=== PATIENT | male | born 1950 | race Asian ===

== ENCOUNTER 2016-07-22 10:32 | Emergency (ER) | payer OTHER ==
[~2016-07-22] VITALS: Ht 170.2 cm; Wt 59.9 kg
[~2016-07-22 10:32] MED LIST: CARBAMAZEPINE300 MG PO; CARBAMAZEPINE400 MG PO; CLARITIN10 MG PO; COLACE100 MG PO; CORDARONE200 MG PO; COREG3.125 MG PO; COUMADIN2 MG PO; COUMADIN2.5 MG PO; COUMADIN3 MG PO; FEOSOL65 MG PO; FERROUS SULFAT325 MG PO; FUROSEMIDE20 M1 PO; GABAPENTIN100 M1 PO; KEPPRA1000 MG PO; LACTULOSE10 GM/152 PO; LASIX40 M1 PO; LASIX40 MG PO; LEVAQUIN500 MG PO; LIDOCAINE TP; MAPAP500 M4 PO; MULTIVITAMIN1 SGL PO; NEOMYCIN SULFA500 M1 PO; NICORELIEF PO; NIZORAL2% TP; NORCO 10/325 MG1 TAB PO; PENTOXIFYLLINE400 M1 PO; PLAVIX75 MG PO; PROTONIX40 MG PO; RANITIDINE HCL150 M2 PO; RISPERDAL1 MG PO; SENNA8.6 M1 PO; SIMVASTATIN40 M1 PO; TEGRETOL-XR200 MG PO; TEGRETOL200 M1 PO; TOPROL XL50 M1 PO; TRENTAL400 M1 PO; ULORIC40 MG PO; ULORIC80 MG PO; WARFARIN SODIUM2 M1 PO; ZYLOPRIM100 MG PO
--- NOTE | 2016-07-22 10:32 | NUR ---
1030-PT BIBA TO BED 4 AT THIS TIME
--- NOTE | 2016-07-22 10:35 | NUR ---
66/M RESHMA FROM [facility] C/O ABNORMAL POTASSIUM LEVEL X TODAY. DENIES N/V/D; SKIN IS PINK/WARM/DRY, SMALL SKIN TEAR NOTED TO R WRIST, NO ACTIVE BLEEDING AT THIS TIME; AAOX4; LUNGS CLEAR BL; HR EVEN AND REGULAR; PT DENIES ANY FEVER, CP, SOB, OR COUGH AT THIS TIME; PATIENT STATES PAIN OF 0/10 AT THIS TIME; VSS; PATIENT POSITIONED FOR COMFORT; HOB ELEVATED; BEDRAILS UP X2; BED DOWN. ER MD MADE AWARE OF PT STATUS.
[2016-07-22] MEDS ORDERED: TEGRETOL-XR100 MG PO (10:51)
--- NOTE | 2016-07-22 10:52 | NUR ---
LAB AT BEDSIDE
[2016-07-22 11:00] VITALS: BP 130/65
[2016-07-22] MEDS ORDERED: LASIX20 MG PO (11:00)
--- NOTE | 2016-07-22 11:02 | NUR ---
X RAY AT BEDSIDE
[2016-07-22] MEDS ORDERED: LACTULOSE10 GM/152 PO (11:07)
[2016-07-22] MEDS ORDERED: KEPPRA750 MG PO (11:12)
--- NOTE | 2016-07-22 11:41 | NUR ---
DR MALAVE EVALUATING PT AT BEDSIDE
[2016-07-22 12:12] VITALS: BP 126/66
--- NOTE | 2016-07-22 12:12 | NUR ---
Patient discharged with v/s stable. Written and verbal after care instructions given and explained. Patient verbalized understanding. Ambulatory with STEADY GAIT, ACCOMPANIED by caregiver. All questions addressed prior to discharge. Advised to follow up with PMD.
[2017-01-05] MEDS ORDERED: SOMA350 MG PO (21:42)
[2017-01-05] MEDS ORDERED: MEGACE40 MG/ML PO (21:42)
[2017-01-05] MEDS ORDERED: HYDROCORTISONE2.51 TP (21:42)
[2017-01-05] MEDS ORDERED: VENTOLIN H0.09 MG/Ac IH (21:42)
[2017-01-05] MEDS ORDERED: CLARITIN10 M1 PO (21:42)
[2017-01-05] MEDS ORDERED: TYLENOL #3 300/1 TAB PO (21:42)
[2017-01-05] MEDS ORDERED: APAP PO (21:42)
[2017-01-05] MEDS ORDERED: ENALAPRIL MALE2.5 MG PO (21:42)
[2017-01-05] MEDS ORDERED: DELTASONE20 MG PO (21:42)
[2017-01-05] MEDS ORDERED: HYDROCODON PO (21:42)
[2017-01-05] MEDS ORDERED: KENALOG 0.025%15 GM TP (22:08)
[2017-01-05] MEDS ORDERED: ULORIC40 MG PO (22:22)
[2017-01-05] MEDS ORDERED: ZYLOPRIM100 MG PO (22:22)
[2017-01-05] MEDS ORDERED: SENNA8.6 M1 PO (22:22)
[2017-01-05] MEDS ORDERED: LIDODERM 5%1 EA TP (22:22)
[2017-01-05] MEDS ORDERED: MAPAP500 M3 PO (22:22)
[2017-01-07] MEDS ORDERED: ASPIRIN81 M1 PO (10:24)
== END 2016-07-22 12:12 | disposition home or self-care (01) ==
LOC: MED 10:32
DX: E87.5 Hyperkalemia (principal); I11.0 Hypertensive heart disease with heart failure; I50.9 Heart failure, unspecified; J45.909 Unspecified asthma, uncomplicated; F17.200 Nicotine dependence, unspecified, uncomplicated; Z86.73 Personal history of transient ischemic attack (TIA), and cerebral infarction without residual deficits; Z90.89 Acquired absence of other organs; Z79.899 Other long term (current) drug therapy; Z88.0 Allergy status to penicillin; Z88.8 Allergy status to other drugs, medicaments and biological substances
CPT/HCPCS: 36415; 71010; 80053; 85025; 93005; 99285; Q0092

== ENCOUNTER 2016-08-18 09:07 | Emergency (ER) | payer OTHER ==
[~2016-08-18] VITALS: Ht 170.2 cm; Wt 63.5 kg
[~2016-08-18 09:07] MED LIST changes: +KEPPRA750 MG PO; +LASIX20 MG PO; +TEGRETOL-XR100 MG PO
[2016-08-18 09:30] VITALS: BP 141/56
--- NOTE | 2016-08-18 09:40 | NUR ---
66/M BIB SELF C/O RIGHT SIDE OF FACE BLEEDING X YESTERDAY S/P SCRATCHED FACE CURRENTLY HAS A SATURATED BAND-AID; HX CABG, HTN. PT DENIES N/V/D; SKIN IS PINK/WARM/DRY; AAOX4 WITH EVEN AND STEADY GAIT; LUNGS CLEAR BL; HR EVEN AND REGULAR; PT DENIES ANY FEVER, CP, SOB, OR COUGH AT THIS TIME; PATIENT STATES PAIN OF 0/10 AT THIS TIME; VSS; PATIENT POSITIONED FOR COMFORT; HOB ELEVATED; BEDRAILS UP X2; BED DOWN. ER MD MADE AWARE OF PT STATUS.
--- NOTE | 2016-08-18 09:40 | NUR ---
LAB AT BEDSIDE
--- NOTE | 2016-08-18 11:00 | NUR ---
Patient discharged with stable CODITION AT THIS TIME. Written and verbal after care instructions given and explained. Patient verbalized understanding. Ambulatory with steady gait. All questions addressed prior to discharge. Advised to follow up with PMD.
[2016-08-18 11:01] VITALS: BP 132/64
[2017-01-05] MEDS ORDERED: HYDROCODON PO (21:42)
[2017-01-05] MEDS ORDERED: APAP PO (21:42)
[2017-01-05] MEDS ORDERED: VENTOLIN H0.09 MG/Ac IH (21:42)
[2017-01-05] MEDS ORDERED: HYDROCORTISONE2.51 TP (21:42)
[2017-01-05] MEDS ORDERED: ENALAPRIL MALE2.5 MG PO (21:42)
[2017-01-05] MEDS ORDERED: MEGACE40 MG/ML PO (21:42)
[2017-01-05] MEDS ORDERED: SOMA350 MG PO (21:42)
[2017-01-05] MEDS ORDERED: DELTASONE20 MG PO (21:42)
[2017-01-05] MEDS ORDERED: CLARITIN10 M1 PO (21:42)
[2017-01-05] MEDS ORDERED: TYLENOL #3 300/1 TAB PO (21:42)
[2017-01-05] MEDS ORDERED: KENALOG 0.025%15 GM TP (22:08)
[2017-01-05] MEDS ORDERED: SENNA8.6 M1 PO (22:22)
[2017-01-05] MEDS ORDERED: LIDODERM 5%1 EA TP (22:22)
[2017-01-05] MEDS ORDERED: MAPAP500 M3 PO (22:22)
[2017-01-05] MEDS ORDERED: ZYLOPRIM100 MG PO (22:22)
[2017-01-05] MEDS ORDERED: ULORIC40 MG PO (22:22)
[2017-01-07] MEDS ORDERED: ASPIRIN81 M1 PO (10:24)
== END 2016-08-18 11:00 | disposition home or self-care (01) ==
LOC: MED 09:10
DX: S01.411A Laceration without foreign body of right cheek and temporomandibular area, initial encounter (principal); D68.8 Other specified coagulation defects; I11.0 Hypertensive heart disease with heart failure; I50.9 Heart failure, unspecified; J45.909 Unspecified asthma, uncomplicated; Z79.899 Other long term (current) drug therapy; Z88.8 Allergy status to other drugs, medicaments and biological substances; Z88.0 Allergy status to penicillin; Z88.3 Allergy status to other anti-infective agents; Z79.01 Long term (current) use of anticoagulants; Z86.73 Personal history of transient ischemic attack (TIA), and cerebral infarction without residual deficits; Z95.1 Presence of aortocoronary bypass graft; F17.200 Nicotine dependence, unspecified, uncomplicated; X58.XXXA Exposure to other specified factors, initial encounter; Y93.89 Activity, other specified; Y92.89 Other specified places as the place of occurrence of the external cause; Y99.8 Other external cause status

== ENCOUNTER 2017-01-02 15:43 | Emergency (ER) | payer OTHER ==
[~2017-01-02] VITALS: Ht 170.2 cm; Wt 63.5 kg
[~2017-01-02 15:43] MED LIST changes: +AMIO200T PO; +CARB100T PO; -CARBAMAZEPINE300 MG PO; -CARBAMAZEPINE400 MG PO; +CARV3.12 PO; -CLARITIN10 MG PO; +CLOP75TA PO; -COLACE100 MG PO; -CORDARONE200 MG PO; -COREG3.125 MG PO; -COUMADIN2 MG PO; -COUMADIN2.5 MG PO; -COUMADIN3 MG PO; +DOCU-264 PO; +FEBU40TA PO; -FEOSOL65 MG PO; +FERR325E14 PO; -FERROUS SULFAT325 MG PO; +FURO-572 PO; -FUROSEMIDE20 M1 PO; +GABA-636 PO; -GABAPENTIN100 M1 PO; -KEPPRA1000 MG PO; -KEPPRA750 MG PO; +KETO2CRE31 TP; +LACT10SO1 PO; -LACTULOSE10 GM/152 PO; -LASIX20 MG PO; -LASIX40 M1 PO; -LASIX40 MG PO; -LEVAQUIN500 MG PO; +LEVE750T3 PO; -LIDOCAINE TP; -MAPAP500 M4 PO; +MULT1SGL58 PO; -MULTIVITAMIN1 SGL PO; +NEOM500T2 PO; -NEOMYCIN SULFA500 M1 PO; -NICORELIEF PO; -NIZORAL2% TP; -NORCO 10/325 MG1 TAB PO; +PANT40EC PO; +PENT400T3 PO; -PENTOXIFYLLINE400 M1 PO; -PLAVIX75 MG PO; -PROTONIX40 MG PO; -RANITIDINE HCL150 M2 PO; +RISP1TAB1 PO; -RISPERDAL1 MG PO; -SENNA8.6 M1 PO; +SIMV40TA5 PO; -SIMVASTATIN40 M1 PO; -TEGRETOL-XR100 MG PO; -TEGRETOL-XR200 MG PO; -TEGRETOL200 M1 PO; -TOPROL XL50 M1 PO; -TRENTAL400 M1 PO; -ULORIC40 MG PO; -ULORIC80 MG PO; +WARF2TAB79 PO; +WARF3TAB PO; -WARFARIN SODIUM2 M1 PO; -ZYLOPRIM100 MG PO
--- NOTE | 2017-01-02 15:43 | NUR ---
Patient BIBA BLS, transferred to bed 4. RN evaluating patient at bedside.
[2017-01-02 15:49] VITALS: BP 122/60
[2017-01-02 16:21] LABS: BASOPHILS # (AUTO) 0.3 K/uL (0.00-0.22); EOSINOPHILS # (AUTO) 0.1 K/uL (0-0.4); HEMATOCRIT 33.6 % (36-52); LYMPHOCYTES # (AUTO) 0.9 K/uL (2.0-11.5); MEAN CORPUSCULAR HEMOGLOBIN 31 pg (27-31); MEAN CORPUSCULAR HGB CONC 33 g/dL (33-37); MEAN CORPUSCULAR VOLUME 96 fL (80-94); MONOCYTES # (AUTO) 0.3 K/uL (0.8-1.0); NEUTROPHILS # (AUTO) 4.5 K/uL (1.8-7.7); PLATELET COUNT (AUTO) 187 K/uL (140-450); RED BLOOD CELL COUNT(AUTO) 3.51 MIL/uL (4.20-6.10); RED CELL DISTRIBUTION WIDTH 14.3 % (11.6-13.7); WHITE BLOOD COUNT (AUTO) 6.1 K/uL (4.8-10.8)
[2017-01-02 16:45] LABS: ALBUMIN 3.6 g/dL (3.4-5.0); ANION GAP 16.7 (8-16); CARBON DIOXIDE 22.2 mmol/L (21-32); CREATININE 2.6 mg/dL (0.7-1.3); POTASSIUM 5.9 mmol/L (3.5-5.1); TOTAL BILIRUBIN 0.4 mg/dL (0.0-1.0); TOTAL PROTEIN, SERUM 7.2 g/dL (6.4-8.2)
[2017-01-02 16:48] LABS: INR 3.3 (0.8-1.2); PROTHROMBIN TIME 33.5 secs (10.8-13.4)
[2017-01-02] MEDS ORDERED: SODIUM POLYSTYRENE 15 GM/60 ML UDBTL PO ONE (17:25)
--- NOTE | 2017-01-02 17:40 | NUR ---
MD AT BEDSIDE SPEAKING WITH PT
--- NOTE | 2017-01-02 18:00 | NUR ---
PT TO X-RAY
--- NOTE | 2017-01-02 19:04 | NUR ---
PT HAS BEEN AMBULATORY TO AND FROM [facility] A FEW TIMES---PT CONTINUES TO WAIT FOR DISPO
[2017-01-02 19:14] VITALS: BP 137/63
== END 2017-01-02 19:14 | disposition home or self-care (01) ==
LOC: MED 15:43
DX: E87.5 Hyperkalemia (principal); M25.551 Pain in right hip; M25.552 Pain in left hip; R79.1 Abnormal coagulation profile; J45.909 Unspecified asthma, uncomplicated; I50.9 Heart failure, unspecified; Z86.73 Personal history of transient ischemic attack (TIA), and cerebral infarction without residual deficits; I10 Essential (primary) hypertension; Z88.0 Allergy status to penicillin; Z88.6 Allergy status to analgesic agent
CPT/HCPCS: 36415; 71010; 72192; 80053; 83880; 84484; 85025; 85610; 85730; 93005; 99285; Q0092

== ENCOUNTER 2017-01-05 21:23 | Inpatient (IN) | payer OTHER ==
[~2017-01-05] VITALS: Ht 170.2 cm; Wt 63.0 kg
[2017-01-05 21:24] VITALS: BP 97/47
[2017-01-05] MEDS ORDERED: PRED20TA5 PO (21:42)
[2017-01-05] MEDS ORDERED: LORA10TA19 PO (21:42)
[2017-01-05] MEDS ORDERED: [UNRECOGNIZED DRUG - CODE] PO (21:42)
[2017-01-05] MEDS ORDERED: CARI350T PO (21:42)
[2017-01-05] MEDS ORDERED: [UNRECOGNIZED DRUG - CODE] TP (21:42)
[2017-01-05] MEDS ORDERED: MEGE40SU PO (21:42)
[2017-01-05] MEDS ORDERED: TYL3 PO (21:42)
[2017-01-05] MEDS ORDERED: ALBU0.0912 IH (21:42)
[2017-01-05] MEDS ORDERED: HYDR-4452 PO (21:42)
[2017-01-05] MEDS ORDERED: NACL 0.9% 2,000 ML IV SCH (21:52)
[2017-01-05] MEDS ORDERED: KEN.025C TP (22:08)
[2017-01-05 22:16] LABS: BASOPHILS % (AUTO) 0.7 % (0.0-2.0); EOSINOPHILS # (AUTO) 0.2 K/uL (0-0.4); EOSINOPHILS % (AUTO) 2.6 % (0.0-4.0); HEMATOCRIT 31.1 % (36-52); HEMOGLOBIN 10.3 g/dL (12.0-18.0); LYMPHOCYTES % (AUTO) 15.1 % (20.5-51.1); MEAN CORPUSCULAR HEMOGLOBIN 32 pg (27-31); MEAN CORPUSCULAR HGB CONC 33 g/dL (33-37); MEAN CORPUSCULAR VOLUME 96 fL (80-94); MONOCYTES # (AUTO) 0.3 K/uL (0.8-1.0); MONOCYTES % (AUTO) 4.7 % (1.7-9.3); NEUTROPHILS # (AUTO) 4.8 K/uL (1.8-7.7); NEUTROPHILS % (AUTO) 76.9 % (42.2-75.2); PLATELET COUNT (AUTO) 160 K/uL (140-450); RED BLOOD CELL COUNT(AUTO) 3.23 MIL/uL (4.20-6.10); RED CELL DISTRIBUTION WIDTH 14.3 % (11.6-13.7); WHITE BLOOD COUNT (AUTO) 6.3 K/uL (4.8-10.8)
[2017-01-05] MEDS ORDERED: FEBU40TA PO (22:22)
[2017-01-05] MEDS ORDERED: LID5T TP (22:22)
[2017-01-05] MEDS ORDERED: ALLO100T21 PO (22:22)
[2017-01-05] MEDS ORDERED: ACET-1087 PO (22:22)
[2017-01-05] MEDS ORDERED: SENN-72 PO (22:22)
[2017-01-05 22:26] LABS: BLOOD GAS BASE EXCESS -6.4 mmol/L (-2.0-2.0); BLOOD GAS PCO2 37.9 mmHg (20-50); BLOOD GAS PH 7.319 (7.35-7.45)
[2017-01-05 22:27] LABS: BLOOD GAS O2 SAT% 93.2 % (92.0-98.5)
[2017-01-05 22:42] LABS: ALBUMIN 3.6 g/dL (3.4-5.0); ANION GAP 14.3 (8-16); CARBON DIOXIDE 23.1 mmol/L (21-32); INR 1.7 (0.8-1.2); PROTHROMBIN TIME 17.6 secs (10.8-13.4); TOTAL BILIRUBIN 0.3 mg/dL (0.0-1.0); TOTAL PROTEIN, SERUM 7.7 g/dL (6.4-8.2)
[2017-01-05 22:45] LABS: POTASSIUM 5.4 mmol/L (3.5-5.1)
[2017-01-05 22:55] LABS: LACTIC ACID 0.8 mmol/L (0.4-2.0)
[2017-01-05 22:59] LABS: PARTIAL THROMBOPLASTIN TIME 59.7 secs (22-35.6)
[2017-01-05] MEDS ORDERED: DEXTROSE 50% 50 ML SYR IVP ONE (23:15)
[2017-01-05] MEDS ORDERED: INSULIN HUMAN REGULAR 100 UNITS/ML 10 ML VIAL IVP ONE (23:15)
[2017-01-05] MEDS ORDERED: NACL 0.9% 1,000 ML IV SCH (23:34)
[2017-01-05] MEDS ORDERED: MORPHINE SULFATE 2 MG/ML SYR IVP PRN (23:35)
[2017-01-05] MEDS ORDERED: ACETAMINOPHEN 325 MG TAB PO PRN (23:35)
[2017-01-05] MEDS ORDERED: HYDROcodone/APAP 7.5/325 MG 1 TAB PO PRN (23:35)
[2017-01-05] MEDS ORDERED: ONDANSETRON 4 MG/2 ML VIAL IM/IVP PRN (23:35)
[2017-01-05] MEDS ORDERED: DOCUSATE SODIUM 100 MG GELCAP PO PRN (23:35)
[2017-01-06] VITALS (7 sets, daily range): BP systolic 103–139; BP diastolic 52–76
[2017-01-06 00:07] LABS: CHOL/HDL RATIO 2.8 (1-4.5); FREE T4 (FREE THYROXINE) 1.16 ng/dL (0.76-1.46); PHOSPHORUS 4.1 mg/dL (2.5-4.9); THYROID STIMULATING HORMONE 2.54 uIU/mL (0.34-3.74)
[2017-01-06] MEDS ORDERED: ACETAMINOPHEN EXTRA STRENGTH 500 MG TAB PO SCH (00:45)
[2017-01-06] MEDS ORDERED: LIDOCAINE OINTMENT 5% 35 GM TUBE TP PRN (00:45)
[2017-01-06] MEDS ORDERED: LACTULOSE 20 GM/30 ML UDC PO PRN (00:45)
[2017-01-06] MEDS ORDERED: LORATADINE 10 MG TAB PO PRN (00:45)
[2017-01-06] MEDS ORDERED: HYDROcodone/APAP 10/325 MG 1 TAB TAB PO SCH (00:45)
[2017-01-06] MEDS ORDERED: LACTULOSE 20 GM/30 ML UDC PO SCH (01:00)
[2017-01-06] MEDS ORDERED: SODIUM POLYSTYRENE 15 GM/60 ML UDBTL PO SCH (01:00)
[2017-01-06] MEDS: NEOMYCIN 500 MG TAB PO SCH ×3 (05:27→17:47)
[2017-01-06] MEDS: ACETAMINOPHEN/CODEINE 300/30MG 1 TAB PO SCH ×3 (06:00→17:47)
[2017-01-06 06:12] LABS: BASOPHILS # (AUTO) 0.1 K/uL (0.00-0.22); BASOPHILS % (AUTO) 0.8 % (0.0-2.0); EOSINOPHILS # (AUTO) 0.1 K/uL (0-0.4); EOSINOPHILS % (AUTO) 1.3 % (0.0-4.0); HEMATOCRIT 31.3 % (36-52); HEMOGLOBIN 10.1 g/dL (12.0-18.0); LYMPHOCYTES # (AUTO) 0.7 K/uL (2.0-11.5); LYMPHOCYTES % (AUTO) 9.8 % (20.5-51.1); MEAN CORPUSCULAR HEMOGLOBIN 31 pg (27-31); MEAN CORPUSCULAR HGB CONC 32 g/dL (33-37); MEAN CORPUSCULAR VOLUME 97 fL (80-94); MONOCYTES # (AUTO) 0.3 K/uL (0.8-1.0); NEUTROPHILS # (AUTO) 6.4 K/uL (1.8-7.7); NEUTROPHILS % (AUTO) 84.1 % (42.2-75.2); PLATELET COUNT (AUTO) 153 K/uL (140-450); RED BLOOD CELL COUNT(AUTO) 3.22 MIL/uL (4.20-6.10); RED CELL DISTRIBUTION WIDTH 14.9 % (11.6-13.7); WHITE BLOOD COUNT (AUTO) 7.6 K/uL (4.8-10.8)
[2017-01-06 06:22] LABS: CALCIUM 7.8 mg/dL (8.5-10.1); CARBON DIOXIDE 21.7 mmol/L (21-32); CREATININE 2.7 mg/dL (0.7-1.3); POTASSIUM 4.7 mmol/L (3.5-5.1)
[2017-01-06] MEDS: CARVEDILOL 3.125 MG TAB PO SCH ×2 (08:27→16:42)
[2017-01-06] MEDS: FERROUS SULFATE 325 MG TABEC PO SCH ×3 (08:27→16:42)
[2017-01-06] MEDS ORDERED: DOCUSATE SODIUM 100 MG GELCAP PO SCH ×2 (09:00)
[2017-01-06] MEDS ORDERED: FEBUXOSTAT 40 MG PO SCH ×2 (09:00)
[2017-01-06] MEDS ORDERED: PENTOXIFYLLINE 400 MG TABER PO SCH (09:00)
[2017-01-06] MEDS: CLOPIDOGREL 75 MG TAB PO SCH (09:00)
[2017-01-06] MEDS: FUROSEMIDE 20 MG TAB PO SCH ×2 (09:34→09:37)
[2017-01-06] MEDS: predniSONE 20 MG TAB PO SCH ×2 (09:34→09:37)
[2017-01-06] MEDS: ENALAPRIL 2.5 MG TAB PO SCH (09:35)
[2017-01-06] MEDS: levETIRAcetam 500 MG TAB PO SCH ×2 (09:37→21:01)
[2017-01-06] MEDS: MULTIVITAMIN 1 TAB PO SCH (09:38)
[2017-01-06] MEDS: CARISOPRODOL 350 MG TAB PO SCH ×2 (09:38→21:00)
[2017-01-06] MEDS: AMIODARONE 200 MG TAB PO SCH ×2 (09:38→21:01)
[2017-01-06] MEDS: PANTOPRAZOLE 40 MG TABEC PO SCH (09:38)
[2017-01-06] MEDS: ALLOPURINOL 100 MG TAB PO SCH (09:38)
[2017-01-06] MEDS: MEGESTROL 400 MG/10 ML UDC PO SCH (09:39)
[2017-01-06] MEDS: TRIAMCINOLONE 0.025% CRM 15 GM TUBE TP SCH ×2 (09:45→21:02)
[2017-01-06] MEDS ORDERED: NICOTINE TRANSD SYS 14 MG/24 HR PATCH TD SCH (13:53)
[2017-01-06] MEDS ORDERED: WARFARIN 2 MG TAB PO SCH (17:00)
[2017-01-06] MEDS ORDERED: SENNA 8.6 MG TAB PO PRN (21:00)
[2017-01-06] MEDS ORDERED: SIMVASTATIN 40 MG TAB PO SCH (21:00)
[2017-01-06] MEDS ORDERED: GABAPENTIN 100 MG CAP PO SCH (21:00)
[2017-01-06] MEDS ORDERED: risperiDONE 1 MG TAB PO SCH (21:00)
[2017-01-06] MEDS ORDERED: HYDROCORTISONE 2.5% CRM 30 GM TUBE TP PRN (21:00)
[2017-01-07] MEDS: NEOMYCIN 500 MG TAB PO SCH ×2 (00:06→05:50)
[2017-01-07] MEDS: ACETAMINOPHEN/CODEINE 300/30MG 1 TAB PO SCH ×2 (00:06→05:53)
[2017-01-07 00:08] VITALS: BP 133/68
[2017-01-07 05:04] VITALS: BP 110/62
[2017-01-07 06:15] LABS: BASOPHILS # (AUTO) 0.1 K/uL (0.00-0.22); BASOPHILS % (AUTO) 0.9 % (0.0-2.0); EOSINOPHILS # (AUTO) 0.1 K/uL (0-0.4); EOSINOPHILS % (AUTO) 1.7 % (0.0-4.0); HEMATOCRIT 30.3 % (36-52); LYMPHOCYTES # (AUTO) 0.7 K/uL (2.0-11.5); LYMPHOCYTES % (AUTO) 8.6 % (20.5-51.1); MEAN CORPUSCULAR HEMOGLOBIN 32 pg (27-31); MEAN CORPUSCULAR HGB CONC 33 g/dL (33-37); MEAN CORPUSCULAR VOLUME 96 fL (80-94); MONOCYTES # (AUTO) 0.4 K/uL (0.8-1.0); NEUTROPHILS # (AUTO) 6.4 K/uL (1.8-7.7); NEUTROPHILS % (AUTO) 83.8 % (42.2-75.2); PLATELET COUNT (AUTO) 154 K/uL (140-450); RED BLOOD CELL COUNT(AUTO) 3.17 MIL/uL (4.20-6.10); RED CELL DISTRIBUTION WIDTH 14.2 % (11.6-13.7); WHITE BLOOD COUNT (AUTO) 7.7 K/uL (4.8-10.8)
[2017-01-07 06:28] LABS: INR 1.8 (0.8-1.2); PROTHROMBIN TIME 17.7 secs (10.8-13.4)
[2017-01-07 06:35] LABS: ANION GAP 12.7 (8-16); CALCIUM 7.9 mg/dL (8.5-10.1); CREATININE 2.3 mg/dL (0.7-1.3); POTASSIUM 4.7 mmol/L (3.5-5.1)
[2017-01-07 06:36] LABS: T4 (THYROXINE) 10.6 ug/dL (4.5-12.0)
[2017-01-07 08:00] VITALS: BP 137/58
[2017-01-07] MEDS: TRIAMCINOLONE 0.025% CRM 15 GM TUBE TP SCH (08:13)
[2017-01-07] MEDS: MEGESTROL 400 MG/10 ML UDC PO SCH (08:18)
[2017-01-07] MEDS: CARISOPRODOL 350 MG TAB PO SCH (08:19)
[2017-01-07] MEDS: PANTOPRAZOLE 40 MG TABEC PO SCH (08:20)
[2017-01-07] MEDS: ALLOPURINOL 100 MG TAB PO SCH (08:21)
[2017-01-07] MEDS: predniSONE 20 MG TAB PO SCH (08:22)
[2017-01-07] MEDS: MULTIVITAMIN 1 TAB PO SCH (08:22)
[2017-01-07] MEDS: CARVEDILOL 3.125 MG TAB PO SCH (08:22)
[2017-01-07] MEDS: FERROUS SULFATE 325 MG TABEC PO SCH (08:22)
[2017-01-07] MEDS: AMIODARONE 200 MG TAB PO SCH (08:22)
[2017-01-07] MEDS: levETIRAcetam 500 MG TAB PO SCH (08:22)
[2017-01-07] MEDS: FUROSEMIDE 20 MG TAB PO SCH (08:23)
[2017-01-07] MEDS: CLOPIDOGREL 75 MG TAB PO SCH (08:23)
[2017-01-07] MEDS: ENALAPRIL 2.5 MG TAB PO SCH (08:23)
[2017-01-07 08:36] LABS: HEMOGLOBIN A1C 6.1 % (4.8-5.6)
[2017-01-07] MEDS ORDERED: NICOTINE TRANSD SYS 21 MG/24 HR PATCH TD SCH (09:00)
[2017-01-07] MEDS ORDERED: KETOCONAZOLE 2% 15 GM TUBE TP SCH (09:00)
[2017-01-07] MEDS ORDERED: NICOTINE TRANSD SYS 14 MG/24 HR PATCH TD SCH (09:00)
[2017-01-07] MEDS ORDERED: ATORVASTATIN 20 MG TAB PO SCH (09:00)
[2017-01-07 09:25] VITALS: BP 137/58
[2017-01-07] MEDS ORDERED: ASPI81CT89 PO (10:24)
[2017-01-07] MEDS ORDERED: WARFARIN 1 MG TAB PO SCH (17:00)
[2017-01-08] MEDS ORDERED: ASPIRIN 81 MG TAB.CHEW PO SCH (09:00)
== END 2017-01-07 10:00 | DRG 460 ==
LOC: MED 21:23 → MTU 23:38
PROVIDERS: ADMIT Family Medicine; ATTEND Family Medicine
DX: N17.0 Acute kidney failure with tubular necrosis (principal); I50.43 Acute on chronic combined systolic (congestive) and diastolic (congestive) heart failure; I95.9 Hypotension, unspecified; E11.22 Type 2 diabetes mellitus with diabetic chronic kidney disease; I13.0 Hypertensive heart and chronic kidney disease with heart failure and stage 1 through stage 4 chronic kidney disease, or unspecified chronic kidney disease; E11.51 Type 2 diabetes mellitus with diabetic peripheral angiopathy without gangrene; E87.5 Hyperkalemia; E86.0 Dehydration; E83.51 Hypocalcemia; N18.3 Chronic kidney disease, stage 3 (moderate); Z95.1 Presence of aortocoronary bypass graft; G90.9 Disorder of the autonomic nervous system, unspecified; J44.1 Chronic obstructive pulmonary disease with (acute) exacerbation; F17.210 Nicotine dependence, cigarettes, uncomplicated; G40.909 Epilepsy, unspecified, not intractable, without status epilepticus; D63.8 Anemia in other chronic diseases classified elsewhere; Z60.2 Problems related to living alone; Z53.29 Procedure and treatment not carried out because of patient's decision for other reasons; I25.5 Ischemic cardiomyopathy; I08.3 Combined rheumatic disorders of mitral, aortic and tricuspid valves; I25.2 Old myocardial infarction; Z88.6 Allergy status to analgesic agent; Z91.048 Other nonmedicinal substance allergy status; Z79.01 Long term (current) use of anticoagulants; Z88.0 Allergy status to penicillin; Z88.8 Allergy status to other drugs, medicaments and biological substances; Z79.899 Other long term (current) drug therapy; Z95.0 Presence of cardiac pacemaker; Z82.49 Family history of ischemic heart disease and other diseases of the circulatory system; Z82.3 Family history of stroke; Z71.6 Tobacco abuse counseling; I69.334 Monoplegia of upper limb following cerebral infarction affecting left non-dominant side
CPT/HCPCS: 36415; 36600; 70450; 71010; 80048; 80053; 82150; 82550; 82553; 82803; 83036; 83605; 83690; 83735; 83874; 83880; 84100; 84436; 84439; 84443; 84479; 84484; 85025; 85610; 85730; 87040; 87081; 93005; 96361; 96374; 96375; 97110; 99291; G0482; J1815; J7030; J7512

== ENCOUNTER 2017-02-12 19:45 | Emergency (ER) | payer OTHER ==
[~2017-02-12] VITALS: Ht 162.6 cm; Wt 66.2 kg
[~2017-02-12 19:45] MED LIST changes: +ALBU0.0912 IH; +ALLO100T21 PO; +ASPI81CT89 PO; +CARI350T PO; -GABA-636 PO; +HYDR-4452 PO; +KEN.025C TP; -LACT10SO1 PO; +LID5T TP; +LORA10TA19 PO; +MEGE40SU PO; +SENN-72 PO; +[UNRECOGNIZED DRUG - CODE] PO; +[UNRECOGNIZED DRUG - CODE] TP
[2017-02-12 19:49] VITALS: BP 105/67
--- NOTE | 2017-02-12 19:51 | NUR ---
PT RESHMA BLS. TAKEN TO BED 3
[2017-02-12] MEDS ORDERED: FEBU40TA PO (20:12)
--- NOTE | 2017-02-12 20:37 | NUR ---
CLIENT ALERT & ORIENTED X4,DENIES PAIN AT THIS TIME,STATED THAT HE HAS SOME DIZZINESS.PLACED ON SPO2/INTERMEDIATE PROJECT MANAGER,97% ROOM AIR VITAL SIGNS STABLE,EKG DONE.
[2017-02-12 21:00] LABS: BASOPHILS # (AUTO) 0.4 K/uL (0.00-0.22); BASOPHILS % (AUTO) 5.1 % (0.0-2.0); EOSINOPHILS # (AUTO) 0.2 K/uL (0-0.4); EOSINOPHILS % (AUTO) 2.9 % (0.0-4.0); HEMOGLOBIN 10.5 g/dL (12.0-18.0); LYMPHOCYTES % (AUTO) 12.5 % (20.5-51.1); MEAN CORPUSCULAR HEMOGLOBIN 32 pg (27-31); MEAN CORPUSCULAR HGB CONC 33 g/dL (33-37); MEAN CORPUSCULAR VOLUME 99 fL (80-94); MONOCYTES # (AUTO) 0.4 K/uL (0.8-1.0); MONOCYTES % (AUTO) 4.3 % (1.7-9.3); NEUTROPHILS # (AUTO) 6.2 K/uL (1.8-7.7); NEUTROPHILS % (AUTO) 75.2 % (42.2-75.2); PLATELET COUNT (AUTO) 197 K/uL (140-450); RED BLOOD CELL COUNT(AUTO) 3.24 MIL/uL (4.20-6.10); RED CELL DISTRIBUTION WIDTH 13.6 % (11.6-13.7); WHITE BLOOD COUNT (AUTO) 8.2 K/uL (4.8-10.8)
[2017-02-12 21:05] LABS: PROTHROMBIN TIME 22.9 secs (10.8-13.4)
[2017-02-12 21:08] LABS: ANION GAP 18.6 (8-16); CARBON DIOXIDE 19.8 mmol/L (21-32); CREATININE 2.5 mg/dL (0.7-1.3); POTASSIUM 5.4 mmol/L (3.5-5.1); TOTAL BILIRUBIN 0.3 mg/dL (0.0-1.0)
--- NOTE | 2017-02-12 21:36 | NUR ---
Dr. Randall evaluating patient at bedside.
[2017-02-12] MEDS ORDERED: SODIUM POLYSTYRENE 15 GM/60 ML UDBTL PO ONE (21:45)
--- NOTE | 2017-02-12 21:49 | NUR ---
IV removed, catheter intact and site benign. Applied folded 4x4 gauze and tape to stop bleeding.
[2017-02-12 22:43] VITALS: BP 123/58
--- NOTE | 2017-02-12 22:47 | NUR ---
Patient discharged with v/s stable. Written and verbal after care instructions given and explained. Patient verbalized understanding. Wheel Chair Assisted with to ASSISTED LIVING. All questions addressed prior to discharge. Advised to follow up with PMD.Brother to patient to facility next door.
== END 2017-02-12 22:47 | disposition home or self-care (01) ==
LOC: MED 19:45
DX: R55 Syncope and collapse (principal); E87.5 Hyperkalemia; I10 Essential (primary) hypertension; F17.210 Nicotine dependence, cigarettes, uncomplicated; Z88.0 Allergy status to penicillin; Z88.8 Allergy status to other drugs, medicaments and biological substances; Z95.1 Presence of aortocoronary bypass graft
CPT/HCPCS: 36415; 71010; 80053; 83880; 84484; 85025; 85610; 85730; 93005; 99285; Q0092

== ENCOUNTER 2017-02-17 13:49 | Emergency (ER) | payer OTHER ==
[~2017-02-17] VITALS: Ht 172.7 cm; Wt 63.5 kg
[2017-02-17 13:58] VITALS: BP 123/57
--- NOTE | 2017-02-17 14:00 | NUR ---
PATIENT BIB EMS FROM [facility] WITH C/O GENERALYZED WEAKNESS; HX; HTN, CARDIAC DZ; SEIZURES RX; --- DENIES N/V/D; SKIN IS PINK/WARM/DRY; AAOX4 WITH EVEN AND STEADY GAIT; LUNGS CLEAR BL; HR EVEN AND REGULAR; PT DENIES ANY FEVER, CP, SOB, OR COUGH AT THIS TIME; PATIENT STATES PAIN OF 0/10 AT THIS TIME; VSS; PATIENT POSITIONED FOR COMFORT; HOB ELEVATED; BEDRAILS UP X2; BED DOWN. ER MD MADE AWARE OF PT STATUS.
[2017-02-17 15:11] LABS: BASOPHILS # (AUTO) 0.1 K/uL (0.00-0.22); BASOPHILS % (AUTO) 1.9 % (0.0-2.0); EOSINOPHILS # (AUTO) 0.3 K/uL (0-0.4); EOSINOPHILS % (AUTO) 3.5 % (0.0-4.0); HEMATOCRIT 33.9 % (36-52); HEMOGLOBIN 11.1 g/dL (12.0-18.0); LYMPHOCYTES # (AUTO) 0.6 K/uL (2.0-11.5); LYMPHOCYTES % (AUTO) 7.8 % (20.5-51.1); MEAN CORPUSCULAR HEMOGLOBIN 32 pg (27-31); MEAN CORPUSCULAR HGB CONC 33 g/dL (33-37); MEAN CORPUSCULAR VOLUME 98 fL (80-94); MONOCYTES # (AUTO) 0.3 K/uL (0.8-1.0); NEUTROPHILS # (AUTO) 6.1 K/uL (1.8-7.7); NEUTROPHILS % (AUTO) 82.8 % (42.2-75.2); PLATELET COUNT (AUTO) 211 K/uL (140-450); RED BLOOD CELL COUNT(AUTO) 3.44 MIL/uL (4.20-6.10); RED CELL DISTRIBUTION WIDTH 13.5 % (11.6-13.7); WHITE BLOOD COUNT (AUTO) 7.4 K/uL (4.8-10.8)
[2017-02-17 15:30] LABS: PROTHROMBIN TIME 21.7 secs (10.8-13.4)
[2017-02-17 15:32] LABS: ANION GAP 16.2 (8-16); CARBON DIOXIDE 22.7 mmol/L (21-32); CREATININE 2.2 mg/dL (0.7-1.3); POTASSIUM 4.9 mmol/L (3.5-5.1); TOTAL BILIRUBIN 0.5 mg/dL (0.0-1.0)
[2017-02-17 15:51] VITALS: BP 120/56
--- NOTE | 2017-02-17 15:51 | NUR ---
Patient discharged with v/s stable. Written and verbal after care instructions given and explained. Patient verbalized understanding. Wheel Chair Assisted TO THE LOBBY AWAITING FOR SON TO PICKUP IN 30 MINUTES. All questions addressed prior to discharge. Advised to follow up with PMD.
== END 2017-02-17 15:51 ==
LOC: MED 13:49
DX: M79.89 Other specified soft tissue disorders (principal); R53.1 Weakness; I10 Essential (primary) hypertension; Z88.0 Allergy status to penicillin; Z88.1 Allergy status to other antibiotic agents; F17.200 Nicotine dependence, unspecified, uncomplicated; Z71.6 Tobacco abuse counseling
CPT/HCPCS: 36415; 80053; 85025; 85610; 85730; 99284

== ENCOUNTER 2017-03-09 16:37 | Inpatient (IN) | payer OTHER ==
[~2017-03-09] VITALS: Ht 170.2 cm; Wt 61.2 kg
[~2017-03-09 16:37] MED LIST changes: +ACET-9535 PO; -DOCU-264 PO; +DOCU-300 PO; -HYDR-4452 PO
[2017-03-09 16:42] VITALS: BP 108/50
--- NOTE | 2017-03-09 17:00 | NUR ---
PT BEING EVALUATED BY DR GUAMAN AT BEDSIDE
--- NOTE | 2017-03-09 17:05 | NUR ---
66/M BIBA C/O GENERALIZED WEAKNESS x 2 DAYS. EMS STATES PT IS FROM [facility]. EMS STATES PT IS ABLE TO AMBULATE BUT ONLY A FEW STEPS AT A TIME. DENIES N/V/D; SKIN IS PINK/WARM/DRY; AAOX3; LUNGS CLEAR BL; HR EVEN AND REGULAR; PT DENIES ANY FEVER, CP, SOB, OR COUGH AT THIS TIME; PATIENT STATES PAIN OF 0/10 AT THIS TIME; VSS; PATIENT POSITIONED FOR COMFORT; HOB ELEVATED; BEDRAILS UP X2; BED DOWN. ER MD MADE AWARE OF PT STATUS.
[2017-03-09] MEDS ORDERED: NACL 0.9% 500 ML IV ONE (17:10)
[2017-03-09 17:42] LABS: MEAN CORPUSCULAR VOLUME 99 fL (80-94)
[2017-03-09 17:47] LABS: BASOPHILS # (AUTO) 0.4 K/uL (0.00-0.22); EOSINOPHILS # (AUTO) 0.1 K/uL (0-0.4); HEMATOCRIT 31.9 % (36-52); HEMOGLOBIN 10.7 g/dL (12.0-18.0); LYMPHOCYTES # (AUTO) 0.8 K/uL (2.0-11.5); MEAN CORPUSCULAR HEMOGLOBIN 33 pg (27-31); MEAN CORPUSCULAR HGB CONC 33 g/dL (33-37); MONOCYTES # (AUTO) 0.3 K/uL (0.8-1.0); NEUTROPHILS # (AUTO) 4.1 K/uL (1.8-7.7); PLATELET COUNT (AUTO) 208 K/uL (140-450); RED BLOOD CELL COUNT(AUTO) 3.22 MIL/uL (4.20-6.10); RED CELL DISTRIBUTION WIDTH 13.4 % (11.6-13.7); WHITE BLOOD COUNT (AUTO) 5.7 K/uL (4.8-10.8)
[2017-03-09 18:06] LABS: ANION GAP 15.3 (8-16); CARBON DIOXIDE 23.9 mmol/L (21-32); CREATININE 2.6 mg/dL (0.7-1.3); POTASSIUM 5.2 mmol/L (3.5-5.1)
[2017-03-09 18:20] LABS: TOTAL BILIRUBIN 0.4 mg/dL (0.0-1.0)
--- NOTE | 2017-03-09 18:30 | NUR ---
PT UNABLE TO PROVIDE URINE AT THIS TIME
--- NOTE | 2017-03-09 19:05 | NUR ---
PT SLEEPING, NO S/S OF DISTRESS NOTED AT THE MOMENT. VSS, WILL CONT TO MONITOR.
--- NOTE | 2017-03-09 19:32 | NUR ---
Patient will be admitted to care of DR RODRIGUEZ. Admited to TELE. Will go to room 106B. Belongings list completed. Report to KAITY HUYNH.
[2017-03-09 19:40] VITALS: BP 137/54
--- NOTE | 2017-03-09 19:40 | NUR ---
PT ARRIVED IN [facility] VIA GURNEY, PT IS AWAKE AND ALERT, SHOWING NO SIGNS OF ACUTE DISTRESS, BOWEL AND BLADDER CONTINENCE, BOWEL SOUNDS PRESENT ON ALL FOUR QUADRANTS. SEIZURE PRECAUTION IN PLACE, URINAL AT THE BEDSIDE. IV ACCESS ASYMPTOMATIC AND PATENT. PLAN OF CARE DISCUSSED, PT VERBALIZED UNDERSTANDING. BED ON LOW POSITION, BILATERAL HALF SIDE RAILS, CALL LIGHT WITHIN REACH, BED ALARM ON, WILL CONTINUE TO MONITOR. ADMIT VS TEMP 98.1, RES 16, 02 100, PAIN 0, HEART RATE 59, BP 137/54.
[2017-03-09] MEDS ORDERED: MORPHINE SULFATE 2 MG/ML SYR IVP PRN (22:00)
[2017-03-09] MEDS ORDERED: DOCUSATE SODIUM 100 MG GELCAP PO PRN (22:00)
[2017-03-09] MEDS ORDERED: ACETAMINOPHEN 325 MG TAB PO PRN (22:00)
[2017-03-09] MEDS ORDERED: ONDANSETRON 4 MG/2 ML VIAL IM/IVP PRN (22:00)
[2017-03-09] MEDS ORDERED: HYDROcodone/APAP 7.5/325 MG 1 TAB PO PRN (22:00)
[2017-03-09 23:16] LABS: CHOL/HDL RATIO 2.4 (1-4.5); FREE T4 (FREE THYROXINE) 1.29 ng/dL (0.76-1.46); MAGNESIUM 2.2 mg/dL (1.8-2.4); THYROID STIMULATING HORMONE 1.86 uIU/mL (0.34-3.74)
[2017-03-09] MEDS: NACL 0.9% 1,000 ML IV SCH (23:43)
[2017-03-10] VITALS: BP 139/60
[2017-03-10] MEDS ORDERED: LIDOCAINE 5% 1 EA PATCH TP SCH (00:25)
[2017-03-10] MEDS ORDERED: LORATADINE 10 MG TAB PO SCH (00:25)
[2017-03-10] MEDS ORDERED: HYDROcodone/APAP 10/325 MG 1 TAB TAB PO SCH (00:25)
--- NOTE | 2017-03-10 02:25 | NUR ---
PT IS SLEEPING. SHOWING NO SIGNS OF ACUTE DISTRESS. BED ON LOW POSITION, BILATERAL HALF SIDE RAILS UP, CALL LIGHT WITHIN REACH. WILL CONTINUE TO MONITOR.
--- NOTE | 2017-03-10 02:40 | NUR ---
PT IS SLEEPING, NO SIGNS OF ACUTE DISTRESS, BED ON LOW POSITION, BILATERAL HALF SIDE RAILS UP, BED ALARM ON , WILL CONTINUE TO MONITOR.
[2017-03-10 04:00] VITALS: BP 128/51
[2017-03-10 05:40] LABS: APPEARANCE,URINE CLEAR (CLEAR); BILIRUBIN,URINE NEGATIVE (NEGATIVE); BLOOD, URINE NEGATIVE (NEGATIVE); COLOR,URINE YELLOW (YELLOW); LEUKOCYTE ESTERASE ,URINE NEGATIVE (NEGATIVE); NITRITE, URINE NEGATIVE (NEGATIVE); UGLUCOSE NEGATIVE (NEGATIVE)
[2017-03-10 05:52] LABS: BARBITURATE, URINE NEG. ng/ml (NEG <=200); BENZODIAZEPINE, URINE NEG. ng/mL (NEG <=200); CANNABINOID, URINE NEG. ng/mL (NEG <=50); COCAINE, URINE NEG. ng/mL (NEG <=300); OPIATE, URINE NEG. ng/mL (NEG <=2000); PHENCYCLIDINE SCREEN,URINE NEG. ng/mL (NEG <=25)
[2017-03-10 05:56] LABS: RBC,URINE NONE SEEN /HPF (0-5); WBC,URINE 0-5 (RARE) /HPF (0-5)
--- NOTE | 2017-03-10 07:10 | NUR ---
PT IS SLEEPING, NO SIGNS OF ACUTE DISTRESS, BED ON LOW POSITION, BILATERAL HALF SIDE RAILS UP, BED ALARM ON , WILL CONTINUE TO MONITOR.
--- NOTE | 2017-03-10 07:15 | NUR ---
ENDORSED PT TO AM NURSE. PT IS STABLE
--- NOTE | 2017-03-10 07:16 | NUR ---
RECEIVED CARE OF PT FROM PORTER BATH NURSE AT BEDSIDE. PT IS A&OX3. PT HAS IV ON L ARM 22G RUNNING NS@90. BED ALARM ON. EDUCATED PT TO USE CALL LIGHT TO CALL FOR HELP. NO DISTRESS NOTED IN PT. CALL LIGHT WITHIN REACH. WILL CONTINUE TO MONITOR.
[2017-03-10 07:52] LABS: CARBON DIOXIDE 21.7 mmol/L (21-32); POTASSIUM 4.7 mmol/L (3.5-5.1)
[2017-03-10 08:00] VITALS: BP 143/54
[2017-03-10] MEDS: CARVEDILOL 3.125 MG TAB PO SCH ×2 (08:00→17:47)
--- NOTE | 2017-03-10 08:00 | NUR ---
DISCOVERED THAT BACK OF PT'S HEAD IS BLEEDING. DISCOVERED A 2.5CMX2.5CM SUPERFICIAL WOUND CAUSED BY SCRATCHING PER PT'S REPORT. NO PAIN. CLEANED THE WOUND WITH NS, LEAVING IT STAKING ENGINEER. PT TOLERATED WELL. CALL LIGHT WITHIN REACH. WILL CONTINUE TO MONITOR.
[2017-03-10] MEDS ORDERED: TRIAMCINOLONE 0.025% CRM 15 GM TUBE TP SCH (09:00)
[2017-03-10] MEDS ORDERED: CARBAMAZEPINE 100 MG PO SCH (09:00)
[2017-03-10] MEDS ORDERED: PENTOXIFYLLINE 400 MG TABER PO SCH (09:00)
[2017-03-10] MEDS ORDERED: FEBUXOSTAT 40 MG PO SCH (09:00)
[2017-03-10] MEDS: NACL 0.9% 1,000 ML IV SCH (09:06)
[2017-03-10] MEDS: MEGESTROL 400 MG/10 ML UDC PO SCH (09:20)
[2017-03-10] MEDS: FOLIC ACID 1 MG TAB PO SCH (09:24)
[2017-03-10] MEDS: AMIODARONE 200 MG TAB PO SCH ×2 (09:24→20:41)
[2017-03-10] MEDS: PANTOPRAZOLE 40 MG TABEC PO SCH (09:25)
[2017-03-10] MEDS: ALLOPURINOL 100 MG TAB PO SCH (09:25)
[2017-03-10] MEDS: FUROSEMIDE 20 MG TAB PO SCH (09:26)
[2017-03-10] MEDS: FERROUS SULFATE 325 MG TABEC PO SCH ×3 (09:27→17:47)
[2017-03-10] MEDS: levETIRAcetam 500 MG TAB PO SCH ×2 (09:27→20:43)
[2017-03-10] MEDS: THIAMINE 100 MG TAB PO SCH (09:27)
[2017-03-10] MEDS: ENALAPRIL 2.5 MG TAB PO SCH (09:27)
[2017-03-10] MEDS: NICOTINE TRANSD SYS 14 MG/24 HR PATCH TD SCH (09:28)
[2017-03-10] MEDS: CLOPIDOGREL 75 MG TAB PO SCH (09:28)
--- NOTE | 2017-03-10 11:00 | NUR ---
PT'S HEAD IS NOT BLEEDING.
[2017-03-10 12:00] VITALS: BP 113/49
--- NOTE | 2017-03-10 12:51 | NUR ---
RECEIVED REFERENCE NUMBER FROM WARD [phone]
--- NOTE | 2017-03-10 13:00 | NUR ---
PT IN STABLE CONDITION. CALL LIGHT WITHIN REACH. WILL CONTINUE TO MONITOR.
--- NOTE | 2017-03-10 15:00 | NUR ---
PT IN STABLE CONDITION. SLEEPING COMFORTABLY IN BED. CALL LIGHT WITHIN REACH. WILL CONTINUE TO MONITOR.
[2017-03-10 16:00] VITALS: BP_SYST 118; BP_SYST 147; BP_DIAS 55; BP_DIAS 92
[2017-03-10] MEDS ORDERED: WARFARIN 2 MG TAB PO SCH (17:00)
[2017-03-10] MEDS ORDERED: WARFARIN 2.5 MG TAB PO SCH (17:00)
--- NOTE | 2017-03-10 17:00 | NUR ---
PT ATTEMPTED TO USE URINAL ON HIS OWN. BED ALARM SET OFF. HELPED PT AND REEDUCATED PT TO USE CALL LIGHT TO CALL FOR HELP. CALL LIGHT WITHIN REACH. WILL CONTINUE TO MONITOR.
--- NOTE | 2017-03-10 18:00 | NUR ---
PT FINISHED DINNER. TOLERATED WELL. CALL LIGHT WITHIN REACH. WILL CONTINUE TO MONITOR.
--- NOTE | 2017-03-10 19:25 | NUR ---
ENDORSED CARE OF PT TO AUTOMOTIVE TIRE WORKER NURSE AT BEDSIDE. PT IN STABLE CONDITION.
--- NOTE | 2017-03-10 19:26 | NUR ---
RECEIVED REPORT FROM AM NURSE. PATIENT AWAKE, ALERT, AND ORIENTED. BROTHER AT THE BEDSIDE. URINAL AT THE BEDSIDE. NO S/S OF DISTRESS NOTED. PATIENT ON ROOM AIR. IV ACCESS PATENT AND ASYMPTOMATIC. PLAN OF CARE DISCUSSED, PT VERBALIZED UNDERSTANDING. PATIENT DENIES PAIN. PATIENT ON TELE MONITORING. BILATERAL HALF SIDE RAILS UP. BED LOWERED WITH CALL LIGHT WITHIN REACH. WILL CONTINUE TO MONITOR
[2017-03-10 20:00] VITALS: BP 133/55
[2017-03-10] MEDS ORDERED: SIMVASTATIN 20 MG TAB PO SCH ×2 (21:00)
[2017-03-10] MEDS ORDERED: CARISOPRODOL 350 MG TAB PO SCH (21:00)
[2017-03-10] MEDS ORDERED: risperiDONE 1 MG TAB PO SCH (21:00)
[2017-03-10] MEDS ORDERED: SENNA 8.6 MG TAB PO PRN (21:00)
--- NOTE | 2017-03-10 21:37 | NUR ---
PT DOWNGRADE TO MED/SURG,NO DISTRESS OR C/O PAIN
--- NOTE | 2017-03-10 22:00 | NUR ---
RECEIVED PT FROM RICKY BRICENO FOR CONTINUITY OF CARE.
--- NOTE | 2017-03-11 | NUR ---
AWAKEN PT FOR V/S,NO COMPLAINTS, INSTRUCTED TO CALL IF NEEDED ASSISTANCE.
[2017-03-11 04:00] VITALS: BP 119/55
--- NOTE | 2017-03-11 04:00 | NUR ---
SLEEPING, NO DISTRESS NOTED,NO COMPLAINTS
[2017-03-11 06:15] LABS: T4 (THYROXINE) 11.7 ug/dL (4.5-12.0)
--- NOTE | 2017-03-11 06:30 | NUR ---
PT REFUSED BLOOD DRAW THIS MORNING.
--- NOTE | 2017-03-11 07:20 | NUR ---
RECEIVED REPORT FROM THE CHARGE NURSE AT BEDSIDE FOR CONTINUITY OF CARE. PT IS AWAKE AND ORIENTED. INTRODUCED MYSELF AND UPDATED THE BOARDS. PLAN FOR TODAY: D/C W/ P/T, SNF PLACEMENT. PT'S IV ON L ARM 22G NS 30 ML INFUSING. PT AMBULATES BUT UNSTEADY. SKIN INTACT. WILL ENCOURAGE PT TO STAY IN BED AND CALL FOR ASSISTANCE. WILL BE BACK WITH MORNING MEDS.
[2017-03-11] MEDS: FERROUS SULFATE 325 MG TABEC PO SCH ×2 (08:37→12:52)
[2017-03-11] MEDS: CLOPIDOGREL 75 MG TAB PO SCH (08:37)
[2017-03-11] MEDS: PANTOPRAZOLE 40 MG TABEC PO SCH (08:37)
[2017-03-11] MEDS: THIAMINE 100 MG TAB PO SCH (08:37)
[2017-03-11] MEDS: AMIODARONE 200 MG TAB PO SCH (08:37)
[2017-03-11] MEDS: ALLOPURINOL 100 MG TAB PO SCH (08:38)
[2017-03-11] MEDS: levETIRAcetam 500 MG TAB PO SCH (08:38)
[2017-03-11] MEDS: ENALAPRIL 2.5 MG TAB PO SCH (08:38)
[2017-03-11] MEDS: CARVEDILOL 3.125 MG TAB PO SCH (08:38)
[2017-03-11] MEDS: FUROSEMIDE 20 MG TAB PO SCH (08:39)
[2017-03-11] MEDS: FOLIC ACID 1 MG TAB PO SCH (08:39)
[2017-03-11] MEDS: MEGESTROL 400 MG/10 ML UDC PO SCH ×2 (08:39→08:45)
[2017-03-11] MEDS: NICOTINE TRANSD SYS 14 MG/24 HR PATCH TD SCH (08:47)
--- NOTE | 2017-03-11 08:47 | NUR ---
ADMINISTERED MORNING MEDS. PT REFUSED MEGACE. PT TOLERATED WELL. PT ANXIOUS TO BE GOING HOME. ENCOURAGED PT TO STAY IN BED UNTIL D/C ORDER IS IN PLACE.
[2017-03-11] MEDS: NACL 0.9% 1,000 ML IV SCH (08:48)
[2017-03-11] MEDS ORDERED: KETOCONAZOLE 2% 15 GM TUBE TP SCH (09:00)
--- NOTE | 2017-03-11 10:21 | NUR ---
PT RESTING IN BED. NO SIGNS OF DISTRESS. JUST WAITING FOR D/C. NO COMPLAINTS. WILL CONTINUE TO MONITOR PT.
[2017-03-11 11:16] LABS: BASOPHILS # (AUTO) 0.1 K/uL (0.00-0.22); BASOPHILS % (AUTO) 1.1 % (0.0-2.0); EOSINOPHILS # (AUTO) 0.1 K/uL (0-0.4); EOSINOPHILS % (AUTO) 1.3 % (0.0-4.0); HEMATOCRIT 31.4 % (36-52); LYMPHOCYTES # (AUTO) 0.7 K/uL (2.0-11.5); LYMPHOCYTES % (AUTO) 13.2 % (20.5-51.1); MEAN CORPUSCULAR HEMOGLOBIN 31 pg (27-31); MEAN CORPUSCULAR HGB CONC 32 g/dL (33-37); MEAN CORPUSCULAR VOLUME 99 fL (80-94); MONOCYTES # (AUTO) 0.2 K/uL (0.8-1.0); MONOCYTES % (AUTO) 3.9 % (1.7-9.3); NEUTROPHILS # (AUTO) 4.5 K/uL (1.8-7.7); NEUTROPHILS % (AUTO) 80.5 % (42.2-75.2); PLATELET COUNT (AUTO) 200 K/uL (140-450); RED BLOOD CELL COUNT(AUTO) 3.19 MIL/uL (4.20-6.10); RED CELL DISTRIBUTION WIDTH 12.6 % (11.6-13.7); WHITE BLOOD COUNT (AUTO) 5.6 K/uL (4.8-10.8)
[2017-03-11 11:32] LABS: ANION GAP 12.7 (8-16); CARBON DIOXIDE 22.8 mmol/L (21-32); CREATININE 1.5 mg/dL (0.7-1.3); MAGNESIUM 1.7 mg/dL (1.8-2.4); PHOSPHORUS 2.7 mg/dL (2.5-4.9); POTASSIUM 4.5 mmol/L (3.5-5.1)
--- NOTE | 2017-03-11 12:23 | NUR ---
SPOKE WITH ALAYNA AT [facility] AND INFORMED HER THAT PT IS DISCHARGED. ALAYNA SAID SHE WILL HAVE THEIR CHEERLEADING COACH PICK PT UP SOME TIME SHORTLY AFTER 2PM. STATED THAT PT DID HAVE SOME HOME PT IN THE PAST BUT HAS BEEN DISCHARGED. PT DOES HAVE AND FWW AND A W/C AT THE FACILITY. STATED THAT PT IS ON B/P MEDICATIONS AND PT DOES CONTINUE TO SMOKE AND THE STAFF HAVE CAUTIONED HIM NOT TO STAND UP QUICKLY AND CURB HIS SMOKING BUT PT CONTINUES TO DO SO THEN EXPERIENCES EPISODES OF DIZZINESS AND HE CALLS 911.
--- NOTE | 2017-03-11 14:05 | NUR ---
03/11/17 RD INITIAL ASSESSMENT COMPLETED PLEASE REFER TO NUTRITION ASSESSMENT UNDER CARE ACTIVITY FOR ESTIMATED NUTRITIONAL NEEDS. 1. CHANGE DIET TO REGULAR DIET 2. ENCOURAGE INCREASED PO INTAKE TO TOLERANCE 3. RD TO FOLLOW UP WITHIN 2-3 DAYS; HIGH RISK SHAHRAM ROSE RD
--- NOTE | 2017-03-11 14:10 | NUR ---
DC INSTRUCTIONS GIVEN TO THE PT. PT VERBALIZED UNDERSTANDING. REMOVED IV, CANNULA INTACT. NO BLEEDING NOTED. REMOVED ID BANDS. PT IS ALREADY DRESSED. PERSONAL BELONGINGS IN A BAG. WILL GET A WHEELCHAIR AND WILL TAKE HER OUT.
--- NOTE | 2017-03-11 14:25 | NUR ---
STUDENT WHEELED OUT PT TO THE LOBBY WHERE A CANNED FOOD RECONDITIONING INSPECTOR IS WAITING TO P/U PT. PT IS IN STABLE CONDITION.
== END 2017-03-11 14:25 | disposition home or self-care (01) | DRG 200 ==
LOC: MED 16:37 → MTU 20:09 → OBSVTOIN 03-10 09:59
PROVIDERS: ADMIT Family Medicine Sports Medicine; ATTEND Family Medicine Sports Medicine
DX: I35.0 Nonrheumatic aortic (valve) stenosis (principal); N17.0 Acute kidney failure with tubular necrosis; I50.43 Acute on chronic combined systolic (congestive) and diastolic (congestive) heart failure; I42.2 Other hypertrophic cardiomyopathy; D68.59 Other primary thrombophilia; E78.5 Hyperlipidemia, unspecified; K21.9 Gastro-esophageal reflux disease without esophagitis; D53.9 Nutritional anemia, unspecified; G40.909 Epilepsy, unspecified, not intractable, without status epilepticus; J45.909 Unspecified asthma, uncomplicated; I73.9 Peripheral vascular disease, unspecified; I25.10 Atherosclerotic heart disease of native coronary artery without angina pectoris; I13.0 Hypertensive heart and chronic kidney disease with heart failure and stage 1 through stage 4 chronic kidney disease, or unspecified chronic kidney disease; N18.9 Chronic kidney disease, unspecified; M10.9 Gout, unspecified; R73.03 Prediabetes; Z86.73 Personal history of transient ischemic attack (TIA), and cerebral infarction without residual deficits; I25.2 Old myocardial infarction; Z88.6 Allergy status to analgesic agent; Z88.0 Allergy status to penicillin; Z91.048 Other nonmedicinal substance allergy status; Z82.3 Family history of stroke; Z82.49 Family history of ischemic heart disease and other diseases of the circulatory system; Z95.1 Presence of aortocoronary bypass graft; Z79.899 Other long term (current) drug therapy; Z79.82 Long term (current) use of aspirin; Z87.891 Personal history of nicotine dependence; I44.0 Atrioventricular block, first degree
CPT/HCPCS: 96360; 99285; G0378; 36415; 70450; 71010; 80048; 80053; 80305; 81001; 82140; 83036; 83605; 83735; 83880; 84100; 84436; 84439; 84443; 84479; 84484; 85025; 85610; 85730; 87081; 93005; 93925; 93970; 97110; 97116; 97530; J7030; Q0092

== ENCOUNTER 2017-05-13 08:59 | Emergency (ER) | payer OTHER ==
[~2017-05-13] VITALS: Ht 170.2 cm; Wt 68.0 kg
[2017-05-13 09:05] VITALS: BP 150/62
[2017-05-13] MEDS: NACL 0.9% 1,000 ML IV ONE (09:44)
[2017-05-13] MEDS: ONDANSETRON 4 MG/2 ML VIAL IVP ONE (09:44)
[2017-05-13] MEDS: MORPHINE SULFATE 2 MG/ML SYR IVP ONE (09:44)
[2017-05-13] MEDS: HYDROcodone/APAP 5/325 MG 1 TAB TAB PO ONE (12:03)
[2017-05-13 12:18] VITALS: BP 138/65
== END 2017-05-13 12:18 | disposition left against medical advice (07) ==
LOC: MED 08:59
DX: S22.41XA Multiple fractures of ribs, right side, initial encounter for closed fracture (principal); I10 Essential (primary) hypertension; Z88.0 Allergy status to penicillin; Z88.1 Allergy status to other antibiotic agents; W18.39XA Other fall on same level, initial encounter; Y93.89 Activity, other specified; Y92.89 Other specified places as the place of occurrence of the external cause; Y99.8 Other external cause status
CPT/HCPCS: 71250; 99284

== ENCOUNTER 2017-09-08 19:21 | Emergency (ER) | payer OTHER ==
[~2017-09-08] VITALS: Ht 170.2 cm; Wt 63.5 kg
--- NOTE | 2017-09-08 19:58 | NUR ---
PATIENT TAKEN TO ER BED 1 BY KEEGAN
--- NOTE | 2017-09-08 20:00 | NUR ---
67/m biba from [facility] c/o of left head hematoma s/p fall, times an hour ago. med hx; seizures, htn, copd, chf. allergies; penicillin, asprin, naproxen. DENIES N/V/D; SKIN IS PINK/WARM/DRY; AAOX4 WITH EVEN AND STEADY GAIT; LUNGS CLEAR BL; HR EVEN AND REGULAR; PT DENIES ANY FEVER, CP, SOB, OR COUGH AT THIS TIME; PATIENT STATES PAIN OF 0/10 AT THIS TIME; VSS; PATIENT POSITIONED FOR COMFORT; HOB ELEVATED; BEDRAILS UP X2; BED DOWN. ER MD MADE AWARE OF PT STATUS.
[2017-09-08 20:01] VITALS: BP 122/66
[2017-09-08 20:32] LABS: EOSINOPHILS # (AUTO) 0.1 K/uL (0-0.4); HEMATOCRIT 30.9 % (36-52); MEAN CORPUSCULAR VOLUME 96.9 fL (80-94); PLATELET COUNT (AUTO) 191 K/uL (140-450); RED BLOOD CELL COUNT(AUTO) 3.19 MIL/uL (4.20-6.10)
[2017-09-08 20:35] LABS: BASOPHILS # (AUTO) 0.3 K/uL (0.00-0.22); HEMOGLOBIN 10.1 g/dL (12.0-18.0); LYMPHOCYTES # (AUTO) 0.7 K/uL (2.0-11.5); MEAN CORPUSCULAR HEMOGLOBIN 32 pg (27-31); MEAN CORPUSCULAR HGB CONC 33 g/dL (33-37); MONOCYTES # (AUTO) 0.2 K/uL (0.8-1.0); NEUTROPHILS # (AUTO) 7.1 K/uL (1.8-7.7); RED CELL DISTRIBUTION WIDTH 13.4 % (11.6-13.7); WHITE BLOOD COUNT (AUTO) 8.4 K/uL (4.8-10.8)
[2017-09-08 20:44] LABS: ALBUMIN 3.2 g/dL (3.4-5.0); ANION GAP 13.8 (8-16); CARBON DIOXIDE 22.8 mmol/L (21-32); CREATININE 1.7 mg/dL (0.7-1.3); POTASSIUM 5.6 mmol/L (3.5-5.1); TOTAL BILIRUBIN 0.3 mg/dL (0.0-1.0)
--- NOTE | 2017-09-08 20:47 | NUR ---
Patient being evaluated by physician at bedside.
[2017-09-08 20:50] LABS: PROTHROMBIN TIME 21.3 secs (10.8-13.4)
--- NOTE | 2017-09-08 21:09 | NUR ---
PT TAKEN TO CT VIA RBLESSING.
--- NOTE | 2017-09-08 22:32 | NUR ---
pt brother madison was notified and aware for picker in half an hour, made aware
[2017-09-08 23:40] VITALS: BP 125/51
--- NOTE | 2017-09-08 23:40 | NUR ---
Patient discharged with v/s stable. PT PICKED UP BY BROTHER. Written and verbal after care instructions given and explained TO PT AND BROTHER. Patient verbalized understanding. Wheel Chair Assisted with by CHARGE NURSE. All questions addressed prior to discharge. Advised to follow up with PMD.
== END 2017-09-08 23:40 | disposition home or self-care (01) ==
LOC: MED 19:21
DX: S09.90XA Unspecified injury of head, initial encounter (principal); J44.9 Chronic obstructive pulmonary disease, unspecified; R51 Headache; I50.9 Heart failure, unspecified; I10 Essential (primary) hypertension; Z88.0 Allergy status to penicillin; Z88.8 Allergy status to other drugs, medicaments and biological substances; Z79.01 Long term (current) use of anticoagulants; W18.39XA Other fall on same level, initial encounter; Y93.89 Activity, other specified; Y92.89 Other specified places as the place of occurrence of the external cause; Y99.8 Other external cause status
CPT/HCPCS: 36415; 70450; 72125; 72192; 80053; 85025; 85610; 85730; 99285

== ENCOUNTER 2017-09-09 18:51 | Inpatient (IN) | payer OTHER ==
[~2017-09-09] VITALS: Ht 167.6 cm; Wt 60.1 kg
[2017-09-09 18:58] VITALS: BP 113/54
[2017-09-09] MEDS ORDERED: ACETAMINOPHEN 325 MG TAB PO ONE (19:40)
[2017-09-09 20:16] LABS: BASOPHILS # (AUTO) 0.1 K/uL (0.00-0.22); BASOPHILS % (AUTO) 0.6 % (0.0-2.0); EOSINOPHILS # (AUTO) 0.1 K/uL (0-0.4); EOSINOPHILS % (AUTO) 1.1 % (0.0-4.0); HEMATOCRIT 31.7 % (36-52); LYMPHOCYTES # (AUTO) 0.5 K/uL (2.0-11.5); LYMPHOCYTES % (AUTO) 5.5 % (20.5-51.1); MEAN CORPUSCULAR HEMOGLOBIN 31 pg (27-31); MEAN CORPUSCULAR HGB CONC 32 g/dL (33-37); MEAN CORPUSCULAR VOLUME 96.8 fL (80-94); MONOCYTES # (AUTO) 0.3 K/uL (0.8-1.0); NEUTROPHILS # (AUTO) 8.1 K/uL (1.8-7.7); NEUTROPHILS % (AUTO) 89.8 % (42.2-75.2); PLATELET COUNT (AUTO) 204 K/uL (140-450); RED BLOOD CELL COUNT(AUTO) 3.27 MIL/uL (4.20-6.10); RED CELL DISTRIBUTION WIDTH 13.8 % (11.6-13.7); WHITE BLOOD COUNT (AUTO) 9.1 K/uL (4.8-10.8)
[2017-09-09 20:38] LABS: PROTHROMBIN TIME 20.3 secs (10.8-13.4)
[2017-09-09 22:06] LABS: ANION GAP 15.3 (8-16); CARBON DIOXIDE 21.1 mmol/L (21-32); CREATININE 1.8 mg/dL (0.7-1.3); POTASSIUM 5.4 mmol/L (3.5-5.1)
[2017-09-09] MEDS ORDERED: NACL 0.9% 1,000 ML IV ONE (22:30)
[2017-09-09] MEDS: NACL 0.9% 1,000 ML IV SCH (22:41)
[2017-09-09] MEDS ORDERED: KETOROLAC 30 MG/ML VIAL IVP PRN (22:45)
[2017-09-09] MEDS ORDERED: DOCUSATE SODIUM 100 MG GELCAP PO PRN (22:45)
[2017-09-09] MEDS ORDERED: HYDROcodone/APAP 7.5/325 MG 1 TAB PO PRN (22:45)
[2017-09-09] MEDS ORDERED: MORPHINE SULFATE 2 MG/ML SYR IVP PRN (22:45)
[2017-09-09] MEDS ORDERED: ACETAMINOPHEN 325 MG TAB PO PRN (22:45)
[2017-09-09] MEDS ORDERED: ONDANSETRON 4 MG/2 ML VIAL IM/IVP PRN (22:45)
[2017-09-09] MEDS: SODIUM POLYSTYRENE 15 GM/60 ML UDBTL PO ONE ×2 (22:46→22:50)
[2017-09-09] MEDS ORDERED: LORATADINE 10 MG TAB PO PRN (22:55)
[2017-09-10 00:42] VITALS: BP 136/56
[2017-09-10 01:52] LABS: CHOL/HDL RATIO 2.6 (1-4.5); MAGNESIUM 2.1 mg/dL (1.8-2.4); THYROID STIMULATING HORMONE 2.5 uIU/mL (0.34-3.74)
[2017-09-10] MEDS: NACL 0.9% 1,000 ML IV SCH ×3 (02:20→16:53)
[2017-09-10 04:00] VITALS: BP 140/54
[2017-09-10 06:32] LABS: BASOPHILS # (AUTO) 0.1 K/uL (0.00-0.22); BASOPHILS % (AUTO) 1.7 % (0.0-2.0); EOSINOPHILS # (AUTO) 0.1 K/uL (0-0.4); EOSINOPHILS % (AUTO) 2.4 % (0.0-4.0); HEMATOCRIT 31.1 % (36-52); HEMOGLOBIN 10.2 g/dL (12.0-18.0); LYMPHOCYTES # (AUTO) 0.8 K/uL (2.0-11.5); LYMPHOCYTES % (AUTO) 14.8 % (20.5-51.1); MEAN CORPUSCULAR HEMOGLOBIN 32 pg (27-31); MEAN CORPUSCULAR HGB CONC 33 g/dL (33-37); MEAN CORPUSCULAR VOLUME 97.6 fL (80-94); MONOCYTES # (AUTO) 0.4 K/uL (0.8-1.0); MONOCYTES % (AUTO) 6.5 % (1.7-9.3); NEUTROPHILS # (AUTO) 4.3 K/uL (1.8-7.7); NEUTROPHILS % (AUTO) 74.6 % (42.2-75.2); PLATELET COUNT (AUTO) 159 K/uL (140-450); RED BLOOD CELL COUNT(AUTO) 3.19 MIL/uL (4.20-6.10); RED CELL DISTRIBUTION WIDTH 13.9 % (11.6-13.7); WHITE BLOOD COUNT (AUTO) 5.7 K/uL (4.8-10.8)
[2017-09-10] MEDS: PANTOPRAZOLE 40 MG TABEC PO SCH (06:43)
[2017-09-10 07:20] LABS: ANION GAP 13.9 (8-16); CARBON DIOXIDE 20.9 mmol/L (21-32); CREATININE 1.5 mg/dL (0.7-1.3); POTASSIUM 4.8 mmol/L (3.5-5.1)
[2017-09-10 08:00] VITALS: BP 148/63
[2017-09-10] MEDS: MEGESTROL 400 MG/10 ML UDC PO SCH ×2 (09:00→10:15)
[2017-09-10] MEDS: DOCUSATE SODIUM 100 MG GELCAP PO SCH ×2 (09:00→20:42)
[2017-09-10] MEDS ORDERED: CALCIUM CARB/VIT-D 500 MG/200 IU 1 TAB PO SCH (09:30)
[2017-09-10] MEDS: AMIODARONE 200 MG TAB PO SCH ×2 (10:07→20:43)
[2017-09-10] MEDS: FUROSEMIDE 20 MG TAB PO SCH (10:07)
[2017-09-10] MEDS: ALLOPURINOL 100 MG TAB PO SCH (10:07)
[2017-09-10] MEDS: FERROUS SULFATE 325 MG TABEC PO SCH ×3 (10:07→17:51)
[2017-09-10] MEDS: CLOPIDOGREL 75 MG TAB PO SCH (10:10)
[2017-09-10] MEDS: levETIRAcetam 500 MG TAB PO SCH ×2 (10:10→20:42)
[2017-09-10] MEDS: CARVEDILOL 3.125 MG TAB PO SCH ×2 (10:10→17:51)
[2017-09-10] MEDS: ENALAPRIL 2.5 MG TAB PO SCH (10:13)
[2017-09-10] MEDS: carBAMazepine 200 MG TAB PO SCH (10:14)
[2017-09-10] MEDS: PENTOXIFYLLINE 400 MG TABER PO SCH ×2 (10:30→20:42)
[2017-09-10 12:00] VITALS: BP 135/52
[2017-09-10 16:00] VITALS: BP 154/66
[2017-09-10] MEDS ORDERED: WARFARIN 1 MG TAB PO SCH (17:00)
[2017-09-10 20:00] VITALS: BP 144/60
[2017-09-10] MEDS: SIMVASTATIN 20 MG TAB PO SCH (20:42)
[2017-09-10] MEDS: risperiDONE 1 MG TAB PO SCH (20:43)
[2017-09-11] VITALS: BP 133/55
[2017-09-11] MEDS: NACL 0.9% 1,000 ML IV SCH ×3 (01:05→22:10)
[2017-09-11 04:00] VITALS: BP 139/64
[2017-09-11] MEDS: PANTOPRAZOLE 40 MG TABEC PO SCH (06:23)
[2017-09-11 06:33] LABS: ANION GAP 15.3 (8-16); CARBON DIOXIDE 22.3 mmol/L (21-32); CREATININE 1.6 mg/dL (0.7-1.3); POTASSIUM 4.6 mmol/L (3.5-5.1)
[2017-09-11 07:07] LABS: BASOPHILS # (AUTO) 0.1 K/uL (0.00-0.22); BASOPHILS % (AUTO) 1.3 % (0.0-2.0); EOSINOPHILS # (AUTO) 0.1 K/uL (0-0.4); EOSINOPHILS % (AUTO) 1.1 % (0.0-4.0); HEMATOCRIT 30.7 % (36-52); LYMPHOCYTES # (AUTO) 0.5 K/uL (2.0-11.5); LYMPHOCYTES % (AUTO) 6.3 % (20.5-51.1); MEAN CORPUSCULAR HEMOGLOBIN 31 pg (27-31); MEAN CORPUSCULAR HGB CONC 32 g/dL (33-37); MEAN CORPUSCULAR VOLUME 96.7 fL (80-94); MONOCYTES # (AUTO) 0.3 K/uL (0.8-1.0); MONOCYTES % (AUTO) 4.3 % (1.7-9.3); NEUTROPHILS # (AUTO) 6.7 K/uL (1.8-7.7); PLATELET COUNT (AUTO) 160 K/uL (140-450); RED BLOOD CELL COUNT(AUTO) 3.18 MIL/uL (4.20-6.10); RED CELL DISTRIBUTION WIDTH 13.5 % (11.6-13.7); WHITE BLOOD COUNT (AUTO) 7.7 K/uL (4.8-10.8)
[2017-09-11 08:00] VITALS: BP 140/60
[2017-09-11] MEDS: CLOPIDOGREL 75 MG TAB PO SCH (08:28)
[2017-09-11] MEDS: ALLOPURINOL 100 MG TAB PO SCH (08:28)
[2017-09-11] MEDS: AMIODARONE 200 MG TAB PO SCH ×2 (08:28→22:06)
[2017-09-11] MEDS: levETIRAcetam 500 MG TAB PO SCH ×2 (08:28→22:06)
[2017-09-11] MEDS: CALCIUM CARB/VIT-D 500 MG/200 IU 1 TAB PO SCH (08:28)
[2017-09-11] MEDS: FERROUS SULFATE 325 MG TABEC PO SCH ×3 (08:28→16:37)
[2017-09-11] MEDS: carBAMazepine 200 MG TAB PO SCH (08:28)
[2017-09-11] MEDS: CARVEDILOL 3.125 MG TAB PO SCH ×2 (08:28→16:37)
[2017-09-11] MEDS: ENALAPRIL 2.5 MG TAB PO SCH (08:29)
[2017-09-11] MEDS: FUROSEMIDE 20 MG TAB PO SCH (08:29)
[2017-09-11] MEDS: PENTOXIFYLLINE 400 MG TABER PO SCH ×2 (08:31→22:09)
[2017-09-11 08:34] LABS: T4 (THYROXINE) 9.3 ug/dL (4.5-12.0)
[2017-09-11 08:55] LABS: PROTHROMBIN TIME 22.2 secs (10.8-13.4)
[2017-09-11] MEDS: MEGESTROL 400 MG/10 ML UDC PO SCH (09:00)
[2017-09-11] MEDS: DOCUSATE SODIUM 100 MG GELCAP PO SCH ×2 (09:00→22:06)
[2017-09-11 16:00] VITALS: BP 154/65
[2017-09-11] MEDS ORDERED: WARFARIN 1 MG TAB PO SCH ×3 (17:00)
[2017-09-11] MEDS: risperiDONE 1 MG TAB PO SCH (22:06)
[2017-09-11] MEDS: SIMVASTATIN 20 MG TAB PO SCH (22:06)
[2017-09-12] VITALS: BP 140/60
[2017-09-12] MEDS: NACL 0.9% 1,000 ML IV SCH (05:49)
[2017-09-12] MEDS: PANTOPRAZOLE 40 MG TABEC PO SCH (05:49)
[2017-09-12 08:00] VITALS: BP 139/57
[2017-09-12] MEDS: DOCUSATE SODIUM 100 MG GELCAP PO SCH (08:19)
[2017-09-12] MEDS: AMIODARONE 200 MG TAB PO SCH (08:19)
[2017-09-12] MEDS: CARVEDILOL 3.125 MG TAB PO SCH (08:19)
[2017-09-12] MEDS: PENTOXIFYLLINE 400 MG TABER PO SCH (08:20)
[2017-09-12] MEDS: carBAMazepine 200 MG TAB PO SCH (08:20)
[2017-09-12] MEDS: CALCIUM CARB/VIT-D 500 MG/200 IU 1 TAB PO SCH (08:20)
[2017-09-12] MEDS: FUROSEMIDE 20 MG TAB PO SCH (08:20)
[2017-09-12] MEDS: ENALAPRIL 2.5 MG TAB PO SCH (08:20)
[2017-09-12] MEDS: levETIRAcetam 500 MG TAB PO SCH (08:20)
[2017-09-12] MEDS: FERROUS SULFATE 325 MG TABEC PO SCH ×2 (08:20→13:02)
[2017-09-12] MEDS: ALLOPURINOL 100 MG TAB PO SCH (08:21)
[2017-09-12] MEDS: CLOPIDOGREL 75 MG TAB PO SCH (08:21)
[2017-09-12] MEDS: MEGESTROL 400 MG/10 ML UDC PO SCH (08:21)
[2017-09-12] MEDS ORDERED: TRAM50TA3 PO (09:40)
[2017-09-12] MEDS ORDERED: WARF1TAB PO (09:44)
[2017-09-12 12:00] VITALS: BP 105/61
[2017-09-12] MEDS ORDERED: WARFARIN 1 MG TAB PO SCH (17:00)
[2017-09-13] MEDS ORDERED: KEN.025C TP (12:42)
== END 2017-09-12 14:40 | disposition home health service (06) | DRG 306 ==
LOC: MED 18:51 → MTU 22:44
PROVIDERS: ADMIT Family Medicine Sports Medicine; ATTEND Family Medicine Sports Medicine
DX: I35.2 Nonrheumatic aortic (valve) stenosis with insufficiency (principal); I50.43 Acute on chronic combined systolic (congestive) and diastolic (congestive) heart failure; E44.0 Moderate protein-calorie malnutrition; N13.8 Other obstructive and reflux uropathy; E87.5 Hyperkalemia; M87.851 Other osteonecrosis, right femur; I42.2 Other hypertrophic cardiomyopathy; M87.852 Other osteonecrosis, left femur; I65.22 Occlusion and stenosis of left carotid artery; I07.1 Rheumatic tricuspid insufficiency; E86.0 Dehydration; N28.1 Cyst of kidney, acquired; W01.198A Fall on same level from slipping, tripping and stumbling with subsequent striking against other object, initial encounter; R29.6 Repeated falls; I11.0 Hypertensive heart disease with heart failure; D63.8 Anemia in other chronic diseases classified elsewhere; M10.9 Gout, unspecified; I49.9 Cardiac arrhythmia, unspecified; F39 Unspecified mood [affective] disorder; G40.909 Epilepsy, unspecified, not intractable, without status epilepticus; J45.909 Unspecified asthma, uncomplicated; M47.892 Other spondylosis, cervical region; N20.0 Calculus of kidney; N40.1 Benign prostatic hyperplasia with lower urinary tract symptoms; K57.30 Diverticulosis of large intestine without perforation or abscess without bleeding; Z96.652 Presence of left artificial knee joint; I73.9 Peripheral vascular disease, unspecified; Y93.89 Activity, other specified; Y92.89 Other specified places as the place of occurrence of the external cause; Y99.8 Other external cause status; Z88.6 Allergy status to analgesic agent; Z88.0 Allergy status to penicillin; Z91.048 Other nonmedicinal substance allergy status; Z95.1 Presence of aortocoronary bypass graft; Z68.21 Body mass index [BMI] 21.0-21.9, adult; Z86.73 Personal history of transient ischemic attack (TIA), and cerebral infarction without residual deficits; Z82.3 Family history of stroke; Z82.49 Family history of ischemic heart disease and other diseases of the circulatory system; I25.2 Old myocardial infarction; Z87.891 Personal history of nicotine dependence
CPT/HCPCS: 36415; 70450; 71045; 72125; 80048; 82040; 83036; 83735; 83880; 84100; 84436; 84443; 84479; 84484; 85025; 85610; 85730; 87081; 93880; 96360; 97110; 97116; 97140; 97530; 99285; J7030; Q0092

== ENCOUNTER 2017-09-12 20:12 | Inpatient (IN) | payer OTHER ==
[~2017-09-12] VITALS: Ht 170.2 cm; Wt 61.7 kg
[~2017-09-12 20:12] MED LIST changes: +TRAM50TA3 PO; +WARF1TAB PO
[2017-09-12 20:17] VITALS: BP 137/52
[2017-09-12] MEDS ORDERED: ONDANSETRON 4 MG/2 ML VIAL IVP PRN (23:50)
[2017-09-12] MEDS ORDERED: HYDROcodone/APAP 7.5/325 MG 1 TAB PO PRN (23:50)
[2017-09-12] MEDS ORDERED: ACETAMINOPHEN 325 MG TAB PO PRN (23:50)
[2017-09-13] VITALS: BP 141/71
[2017-09-13] MEDS: NACL 0.9% 1,000 ML IV SCH ×2 (00:02→19:47)
[2017-09-13 00:42] LABS: BASOPHILS # (AUTO) 0.1 K/uL (0.00-0.22); BASOPHILS % (AUTO) 1.6 % (0.0-2.0); EOSINOPHILS # (AUTO) 0.1 K/uL (0-0.4); EOSINOPHILS % (AUTO) 0.8 % (0.0-4.0); HEMATOCRIT 32.2 % (36-52); HEMOGLOBIN 10.4 g/dL (12.0-18.0); LYMPHOCYTES # (AUTO) 0.5 K/uL (2.0-11.5); LYMPHOCYTES % (AUTO) 6.1 % (20.5-51.1); MEAN CORPUSCULAR HEMOGLOBIN 31 pg (27-31); MEAN CORPUSCULAR HGB CONC 32 g/dL (33-37); MEAN CORPUSCULAR VOLUME 96.6 fL (80-94); MONOCYTES # (AUTO) 0.5 K/uL (0.8-1.0); NEUTROPHILS # (AUTO) 7.4 K/uL (1.8-7.7); PLATELET COUNT (AUTO) 187 K/uL (140-450); RED BLOOD CELL COUNT(AUTO) 3.33 MIL/uL (4.20-6.10); RED CELL DISTRIBUTION WIDTH 13.3 % (11.6-13.7); WHITE BLOOD COUNT (AUTO) 8.6 K/uL (4.8-10.8)
[2017-09-13 00:46] LABS: ANION GAP 14.8 (8-16); CARBON DIOXIDE 24.1 mmol/L (21-32); CREATININE 1.6 mg/dL (0.7-1.3); POTASSIUM 3.9 mmol/L (3.5-5.1)
[2017-09-13 00:56] LABS: NEUTROPHILS % (AUTO) 85.5 % (42.2-75.2)
[2017-09-13 01:01] LABS: PROTHROMBIN TIME 28.2 secs (10.8-13.4)
[2017-09-13 01:19] LABS: CHOL/HDL RATIO 2.6 (1-4.5); FREE T4 (FREE THYROXINE) 1.55 ng/dL (0.76-1.46); MAGNESIUM 1.7 mg/dL (1.8-2.4); THYROID STIMULATING HORMONE 3.46 uIU/mL (0.34-3.74)
[2017-09-13] MEDS ORDERED: MECLIZINE 25 MG TAB PO PRN (03:20)
[2017-09-13] MEDS ORDERED: ALBUTEROL HFA MDI 90 MCG/ACTUATION 8 GM INH PRN (03:20)
[2017-09-13 04:00] VITALS: BP 143/63
[2017-09-13] MEDS: PANTOPRAZOLE 40 MG TABEC PO SCH (06:02)
[2017-09-13 08:00] VITALS: BP_SYST 154; BP_SYST 171; BP_DIAS 108; BP_DIAS 64
[2017-09-13] MEDS ORDERED: ALBUTEROL 0.083% 2.5 MG/3 ML NEBU INH PRN (08:15)
[2017-09-13] MEDS: CARVEDILOL 3.125 MG TAB PO SCH ×2 (08:39→17:33)
[2017-09-13] MEDS: PENTOXIFYLLINE 400 MG TABER PO SCH ×2 (08:39→20:46)
[2017-09-13] MEDS: DOCUSATE SODIUM 100 MG GELCAP PO SCH ×2 (08:39→20:47)
[2017-09-13] MEDS: MULTIVITAMIN 1 TAB PO SCH (08:39)
[2017-09-13] MEDS: AMIODARONE 200 MG TAB PO SCH ×2 (08:40→20:46)
[2017-09-13] MEDS: levETIRAcetam 500 MG TAB PO SCH ×2 (08:40→20:46)
[2017-09-13] MEDS: FERROUS SULFATE 325 MG TABEC PO SCH ×3 (08:40→17:33)
[2017-09-13] MEDS: LORATADINE 10 MG TAB PO SCH (08:40)
[2017-09-13] MEDS: traMADol 50 MG TAB PO SCH ×2 (08:40→20:50)
[2017-09-13] MEDS: MEGESTROL 400 MG/10 ML UDC PO SCH (08:41)
[2017-09-13] MEDS: ENALAPRIL 2.5 MG TAB PO SCH (08:51)
[2017-09-13] MEDS: NEOMYCIN 500 MG TAB PO SCH ×4 (08:51→20:48)
[2017-09-13] MEDS: LIDOCAINE 5% 1 EA PATCH TP SCH (08:56)
[2017-09-13] MEDS ORDERED: CLOPIDOGREL 75 MG TAB PO SCH (09:00)
[2017-09-13] MEDS ORDERED: WARFARIN 1 MG TAB PO SCH (09:00)
[2017-09-13] MEDS ORDERED: TRIAMCINOLONE 0.025% CRM 15 GM TUBE TP SCH (09:00)
[2017-09-13] MEDS ORDERED: CARBAMAZEPINE 100 MG PO SCH (09:00)
[2017-09-13] MEDS ORDERED: FEBUXOSTAT 40 MG PO SCH (09:00)
[2017-09-13 10:10] LABS: APPEARANCE,URINE CLEAR (CLEAR); BILIRUBIN,URINE NEGATIVE (NEGATIVE); BLOOD, URINE NEGATIVE (NEGATIVE); COLOR,URINE YELLOW (YELLOW); LEUKOCYTE ESTERASE ,URINE NEGATIVE (NEGATIVE); NITRITE, URINE NEGATIVE (NEGATIVE); PH,URINE 5.5 (5.0-9.0); UGLUCOSE NEGATIVE (NEGATIVE)
[2017-09-13] MEDS ORDERED: PROBIOTIC SCREEN 1 EA MISC MC PRN (11:05)
[2017-09-13 11:06] LABS: RBC,URINE 0-5 (RARE) /HPF (0-5); WBC,URINE 0-5 (RARE) /HPF (0-5)
[2017-09-13 12:00] VITALS: BP 132/55
[2017-09-13] MEDS ORDERED: KEN.025C TP (12:42)
[2017-09-13 16:00] VITALS: BP 156/67
[2017-09-13 20:00] VITALS: BP 158/68
[2017-09-13] MEDS: CARISOPRODOL 350 MG TAB PO SCH (20:47)
[2017-09-13] MEDS: risperiDONE 1 MG TAB PO SCH (20:47)
[2017-09-13] MEDS: carBAMazepine 200 MG TAB PO SCH (20:47)
[2017-09-13] MEDS: SIMVASTATIN 40 MG TAB PO SCH (20:50)
[2017-09-13] MEDS: TRIAMCINOLONE 0.025% CRM 15 GM TUBE TP SCH (20:50)
[2017-09-13] MEDS: SENNA 8.6 MG TAB PO SCH (20:50)
[2017-09-13] MEDS: HYDROCORTISONE 2.5% OINT 30 GM TUBE TP SCH (20:51)
[2017-09-13] MEDS ORDERED: HYDROCORTISONE 2.5 MG TP SCH (21:00)
[2017-09-14] VITALS (7 sets, daily range): BP systolic 110–158; BP diastolic 49–69
[2017-09-14] MEDS: PANTOPRAZOLE 40 MG TABEC PO SCH (05:57)
[2017-09-14 07:34] LABS: ANION GAP 18.1 (8-16); CARBON DIOXIDE 20.2 mmol/L (21-32); CREATININE 1.3 mg/dL (0.7-1.3); POTASSIUM 4.3 mmol/L (3.5-5.1)
[2017-09-14] MEDS: CARVEDILOL 3.125 MG TAB PO SCH ×2 (08:00→17:46)
[2017-09-14] MEDS: LIDOCAINE 5% 1 EA PATCH TP SCH (09:00)
[2017-09-14] MEDS: FUROSEMIDE 20 MG/2 ML VIAL IVP SCH ×2 (09:19→20:49)
[2017-09-14] MEDS: ENALAPRIL 2.5 MG TAB PO SCH (09:20)
[2017-09-14] MEDS: LORATADINE 10 MG TAB PO SCH (09:20)
[2017-09-14] MEDS: MEGESTROL 400 MG/10 ML UDC PO SCH ×2 (09:21→09:51)
[2017-09-14] MEDS: carBAMazepine 200 MG TAB PO SCH ×2 (09:21→20:51)
[2017-09-14] MEDS: DOCUSATE SODIUM 100 MG GELCAP PO SCH ×2 (09:22→20:49)
[2017-09-14] MEDS: AMIODARONE 200 MG TAB PO SCH ×2 (09:22→20:49)
[2017-09-14] MEDS: traMADol 50 MG TAB PO SCH ×2 (09:23→20:51)
[2017-09-14] MEDS: MULTIVITAMIN 1 TAB PO SCH (09:23)
[2017-09-14] MEDS: FERROUS SULFATE 325 MG TABEC PO SCH ×3 (09:23→17:46)
[2017-09-14] MEDS: PENTOXIFYLLINE 400 MG TABER PO SCH ×2 (09:23→20:51)
[2017-09-14] MEDS: NEOMYCIN 500 MG TAB PO SCH ×4 (09:23→20:50)
[2017-09-14] MEDS: TRIAMCINOLONE 0.025% CRM 15 GM TUBE TP SCH ×2 (09:24→20:51)
[2017-09-14] MEDS: levETIRAcetam 500 MG TAB PO SCH ×2 (09:24→20:50)
[2017-09-14] MEDS ORDERED: MAG SULF 2000 MG/WATER PREMIX 50 ML IV SCH (09:30)
[2017-09-14 10:08] LABS: BASOPHILS # (AUTO) 0.1 K/uL (0.00-0.22); BASOPHILS % (AUTO) 1.8 % (0.0-2.0); EOSINOPHILS # (AUTO) 0.1 K/uL (0-0.4); EOSINOPHILS % (AUTO) 1.9 % (0.0-4.0); HEMATOCRIT 31.6 % (36-52); HEMOGLOBIN 10.5 g/dL (12.0-18.0); LYMPHOCYTES # (AUTO) 0.7 K/uL (2.0-11.5); LYMPHOCYTES % (AUTO) 9.5 % (20.5-51.1); MEAN CORPUSCULAR HEMOGLOBIN 32 pg (27-31); MEAN CORPUSCULAR HGB CONC 33 g/dL (33-37); MEAN CORPUSCULAR VOLUME 95.8 fL (80-94); MONOCYTES # (AUTO) 0.5 K/uL (0.8-1.0); MONOCYTES % (AUTO) 6.3 % (1.7-9.3); NEUTROPHILS # (AUTO) 5.9 K/uL (1.8-7.7); NEUTROPHILS % (AUTO) 80.5 % (42.2-75.2); PLATELET COUNT (AUTO) 163 K/uL (140-450); RED CELL DISTRIBUTION WIDTH 13.8 % (11.6-13.7); WHITE BLOOD COUNT (AUTO) 7.3 K/uL (4.8-10.8)
[2017-09-14] MEDS: SIMVASTATIN 40 MG TAB PO SCH (20:49)
[2017-09-14] MEDS: risperiDONE 1 MG TAB PO SCH (20:50)
[2017-09-14] MEDS: SENNA 8.6 MG TAB PO SCH (20:50)
[2017-09-14] MEDS: CARISOPRODOL 350 MG TAB PO SCH (20:50)
[2017-09-14] MEDS: HYDROCORTISONE 2.5% OINT 30 GM TUBE TP SCH (20:52)
[2017-09-15] MEDS: PANTOPRAZOLE 40 MG TABEC PO SCH (05:53)
[2017-09-15 08:00] VITALS: BP 157/66
[2017-09-15 08:09] LABS: EOSINOPHILS # (AUTO) 0.1 K/uL (0-0.4); HEMATOCRIT 33.5 % (36-52); HEMOGLOBIN 10.8 g/dL (12.0-18.0); LYMPHOCYTES # (AUTO) 0.8 K/uL (2.0-11.5); MEAN CORPUSCULAR HEMOGLOBIN 32 pg (27-31); MEAN CORPUSCULAR HGB CONC 32 g/dL (33-37); MEAN CORPUSCULAR VOLUME 97.7 fL (80-94); MONOCYTES # (AUTO) 0.3 K/uL (0.8-1.0); NEUTROPHILS # (AUTO) 6.3 K/uL (1.8-7.7); PLATELET COUNT (AUTO) 192 K/uL (140-450); RED BLOOD CELL COUNT(AUTO) 3.43 MIL/uL (4.20-6.10); RED CELL DISTRIBUTION WIDTH 14.2 % (11.6-13.7); WHITE BLOOD COUNT (AUTO) 7.6 K/uL (4.8-10.8)
[2017-09-15 08:13] LABS: ANION GAP 15.3 (8-16); CREATININE 1.5 mg/dL (0.7-1.3); POTASSIUM 4.3 mmol/L (3.5-5.1)
[2017-09-15 08:15] LABS: BASOPHILS % (AUTO) 0.6 % (0.0-2.0); LYMPHOCYTES % (AUTO) 10.9 % (20.5-51.1); MONOCYTES % (AUTO) 4.3 % (1.7-9.3); NEUTROPHILS % (AUTO) 83.2 % (42.2-75.2)
[2017-09-15] MEDS: CARVEDILOL 3.125 MG TAB PO SCH (08:24)
[2017-09-15] MEDS: DOCUSATE SODIUM 100 MG GELCAP PO SCH (08:25)
[2017-09-15] MEDS: LORATADINE 10 MG TAB PO SCH (08:26)
[2017-09-15] MEDS: NEOMYCIN 500 MG TAB PO SCH (08:26)
[2017-09-15] MEDS: FERROUS SULFATE 325 MG TABEC PO SCH (08:27)
[2017-09-15] MEDS: MULTIVITAMIN 1 TAB PO SCH (08:27)
[2017-09-15] MEDS: carBAMazepine 200 MG TAB PO SCH (08:27)
[2017-09-15] MEDS: ENALAPRIL 2.5 MG TAB PO SCH (08:28)
[2017-09-15] MEDS: levETIRAcetam 500 MG TAB PO SCH (08:28)
[2017-09-15] MEDS: AMIODARONE 200 MG TAB PO SCH (08:28)
[2017-09-15] MEDS: FUROSEMIDE 20 MG/2 ML VIAL IVP SCH (08:41)
[2017-09-15] MEDS: PENTOXIFYLLINE 400 MG TABER PO SCH (08:52)
[2017-09-15] MEDS: traMADol 50 MG TAB PO SCH (08:52)
[2017-09-15] MEDS: TRIAMCINOLONE 0.025% CRM 15 GM TUBE TP SCH (08:56)
[2017-09-15] MEDS: LIDOCAINE 5% 1 EA PATCH TP SCH (08:56)
== END 2017-09-15 11:05 | DRG 73 ==
LOC: MED 20:12 → MIC 23:05 → MTU 09-14 16:32
PROVIDERS: ADMIT Family Medicine; ATTEND Family Medicine
DX: G90.9 Disorder of the autonomic nervous system, unspecified (principal); I50.43 Acute on chronic combined systolic (congestive) and diastolic (congestive) heart failure; N17.9 Acute kidney failure, unspecified; I13.0 Hypertensive heart and chronic kidney disease with heart failure and stage 1 through stage 4 chronic kidney disease, or unspecified chronic kidney disease; M87.851 Other osteonecrosis, right femur; M87.852 Other osteonecrosis, left femur; E11.22 Type 2 diabetes mellitus with diabetic chronic kidney disease; F03.90 Unspecified dementia, unspecified severity, without behavioral disturbance, psychotic disturbance, mood disturbance, and anxiety; W18.39XA Other fall on same level, initial encounter; J44.9 Chronic obstructive pulmonary disease, unspecified; M10.9 Gout, unspecified; I73.9 Peripheral vascular disease, unspecified; G40.909 Epilepsy, unspecified, not intractable, without status epilepticus; Z88.0 Allergy status to penicillin; Z88.8 Allergy status to other drugs, medicaments and biological substances; Z96.653 Presence of artificial knee joint, bilateral; Z91.048 Other nonmedicinal substance allergy status; I25.2 Old myocardial infarction; Z86.73 Personal history of transient ischemic attack (TIA), and cerebral infarction without residual deficits; Z95.1 Presence of aortocoronary bypass graft; Z95.0 Presence of cardiac pacemaker; Z82.49 Family history of ischemic heart disease and other diseases of the circulatory system; I49.9 Cardiac arrhythmia, unspecified; N20.0 Calculus of kidney; N13.9 Obstructive and reflux uropathy, unspecified; D63.8 Anemia in other chronic diseases classified elsewhere; N18.9 Chronic kidney disease, unspecified; F39 Unspecified mood [affective] disorder; Y93.89 Activity, other specified; Y92.89 Other specified places as the place of occurrence of the external cause; Y99.8 Other external cause status
CPT/HCPCS: 36415; 70450; 71045; 72192; 80048; 81001; 82140; 82150; 83036; 83605; 83690; 83735; 83880; 84100; 84439; 84443; 84484; 85025; 85610; 85730; 87081; 93005; 97110; 99285; J1940; J3475; J7030; J8597

== ENCOUNTER 2018-08-07 14:08 | Emergency (ER) | payer OTHER, MEDICAID ==
[~2018-08-07] VITALS: Ht 170.2 cm; Wt 59.9 kg
[~2018-08-07 14:08] MED LIST changes: -ALLO100T21 PO; -ASPI81CT89 PO; -FURO-572 PO; -PENT400T3 PO; +TRE400 PO; -WARF2TAB79 PO; -WARF3TAB PO
--- NOTE | 2018-08-07 14:18 | NUR ---
PATIENT BIBA TO BED 8 AT THIS TIME,
[2018-08-07 14:44] VITALS: BP 128/50
--- NOTE | 2018-08-07 15:01 | NUR ---
rash on chest and angd groin x last noc; Denies sob;ITCHY TO CHEST. HX: htn;bypass;sz. DENIES N/V/D; SKIN IS PINK/WARM/DRY;AWAKE, ALERT. LUNGS CLEAR BL; HR EVEN AND REGULAR; PT DENIES ANY FEVER, CP, SOB, OR COUGH AT THIS TIME; PATIENT STATES PAIN OF 0/10 AT THIS TIME; VSS; PATIENT POSITIONED FOR COMFORT; HOB ELEVATED; BEDRAILS UP X2; BED DOWN. ER MD MADE AWARE OF PT STATUS.
[2018-08-07 15:35] VITALS: BP 135/53
--- NOTE | 2018-08-07 15:35 | NUR ---
Patient discharged with v/s stable. Written and verbal after care instructions given and explained. Patient alert, oriented and verbalized understanding of instructions. Wheel Chair Assisted with to car. All questions addressed prior to discharge. ID band removed. Patient advised to follow up with PMD. Rx of HYDROCORTISONE given. Patient educated on indication of medication including possible reaction and side effects. Opportunity to ask questions provided and answered.
== END 2018-08-07 15:35 | disposition home or self-care (01) ==
LOC: MED 14:08
DX: I87.2 Venous insufficiency (chronic) (peripheral) (principal); J44.9 Chronic obstructive pulmonary disease, unspecified; I11.0 Hypertensive heart disease with heart failure; I50.9 Heart failure, unspecified; Z79.01 Long term (current) use of anticoagulants; Z79.891 Long term (current) use of opiate analgesic; Z79.2 Long term (current) use of antibiotics; Z79.899 Other long term (current) drug therapy; Z88.0 Allergy status to penicillin; Z88.6 Allergy status to analgesic agent; Z88.8 Allergy status to other drugs, medicaments and biological substances
CPT/HCPCS: 99283

== ENCOUNTER 2018-11-30 20:21 | Inpatient (IN) | payer OTHER, MEDICAID ==
[~2018-11-30] VITALS: Ht 170.2 cm; Wt 63.5 kg
--- NOTE | 2018-11-30 20:21 | NUR ---
PT BROUGHT TO BED 10 VIA ANTONIO
[2018-11-30 20:22] VITALS: BP 108/89
--- NOTE | 2018-11-30 20:24 | NUR ---
EKG PERFORMED AT BEDSIDE
--- NOTE | 2018-11-30 20:25 | NUR ---
68 YO MALE COMES TO ED FOR HEADACHE/PAIN S/P FALL. PT DENIES LIGHTHEADEDNESS DIZZINESS. L SIDED HEMIPLEGIA, PERRL +3 ABLE TO TRACK, FOLLOWS COMMANDS. AAOX3. CLEAR EVEN UNLABORED BREATH SOUNDS BILATERALLY. PALPABLE PULSES, +1 RADIAL, AND PEDAL PULSES HR 30-40S BP 109/52. SKIN WARM DRY INTACT. ABD SOFT NON DISTENDED. DENIES N/V/D. GURNEY LOCKED IN LOWEST POSITION PMH: DYSLIPIDEMIA, CABGX3, SEIZURES, CVA LSIDED HEMIPLEGIA, HYPOTHYROID, COPD ALLERIGES: PCN
--- NOTE | 2018-11-30 20:34 | NUR ---
LAB AT BEDSIDE
--- NOTE | 2018-11-30 20:45 | NUR ---
PT TAKEN TO CT VIA Powerlytics[facility]NEY CONNECTED TO MONITOR WITH GER BRICENO
[2018-11-30 20:52] LABS: BASOPHILS # (AUTO) 0.1 K/uL (0.00-0.22); BASOPHILS % (AUTO) 0.8 % (0.0-2.0); EOSINOPHILS # (AUTO) 0.1 K/uL (0-0.4); EOSINOPHILS % (AUTO) 1.2 % (0.0-4.0); HEMOGLOBIN 12.8 g/dL (12.0-18.0); LYMPHOCYTES # (AUTO) 0.8 K/uL (2.0-11.5); LYMPHOCYTES % (AUTO) 10.9 % (20.5-51.1); MEAN CORPUSCULAR HEMOGLOBIN 33 pg (27-31); MEAN CORPUSCULAR HGB CONC 33 g/dL (33-37); MEAN CORPUSCULAR VOLUME 101.8 fL (80-94); MONOCYTES # (AUTO) 0.2 K/uL (0.8-1.0); MONOCYTES % (AUTO) 3.2 % (1.7-9.3); NEUTROPHILS % (AUTO) 83.9 % (42.2-75.2); PLATELET COUNT (AUTO) 132 K/uL (140-450); RED BLOOD CELL COUNT(AUTO) 3.83 MIL/uL (4.20-6.10); WHITE BLOOD COUNT (AUTO) 7.2 K/uL (4.8-10.8)
--- NOTE | 2018-11-30 20:56 | NUR ---
PT WHEELED BACK TO ER10 FROM RADIOLOGY
[2018-11-30 21:08] LABS: PROTHROMBIN TIME 13.9 secs (10.8-13.4)
[2018-11-30 21:10] LABS: ALBUMIN 3.9 g/dL (3.4-5.0); ANION GAP 16.5 (8-16); CARBON DIOXIDE 20.5 mmol/L (21-32); CREATININE 2.3 mg/dL (0.7-1.3); TOTAL BILIRUBIN 0.4 mg/dL (0.0-1.0)
[2018-11-30] MEDS ORDERED: SODIUM POLYSTYRENE 15 GM/60 ML UDBTL PO ONE (21:20)
[2018-11-30] MEDS ORDERED: NACL 0.9% 1,000 ML IV ONE (21:25)
[2018-11-30] MEDS ORDERED: CALCIUM CHLORIDE 10% 1,000 MG in NACL 0.9% 100 ML IV ONE (21:30)
--- NOTE | 2018-11-30 22:00 | NUR ---
PT AWAKE SITTING UP IN BED, CONVERSING WITH STAFF. HR 40-60S AFIB PT DENIES CP/SOB @ THIS TIME. BP 118/63. WILL CONTINUE TO OBSERVE.
[2018-11-30] MEDS ORDERED: CALCIUM CHLORIDE 10% 100 MG/ML SYR IVP ONE (22:07)
--- NOTE | 2018-11-30 22:10 | NUR ---
@ BEDSIDE TALKING TO PT ABOUT KAYEXALATE, PT THEN BECAME SILENT, UNABLE TO BE AROUSED. VTACH ON MONITOR, + PULSE, CPR/ACLS INITIATED, CODE CALLED. JUANCHO RT @ BEDSIDE. 2211: VTACH CPR FOLLOWED BY DEFIB @ 3. 5 PULSE RECHECKED NO PULSE; PEA 2215: EPI IVP GIVEN 8 1 AMP NA BICARB GIVEN 2220: EPI IVP GIVEN 2221: RHYTHM RECHECKED AND IS NSR WITH BBB 90S 2223: PT INTUBATED RSI KIT 20 MG ETOMIDATE AND 100 MG SUCCINYLCHOLINE GIVEN 2225: D50 X1 AMP GIVEN SEE CHART FOR FURTHER DETAILS
[2018-11-30] MEDS ORDERED: SODIUM BICARBONATE 4.2% 5 MEQ/10 ML SYR IV ONE (22:25)
[2018-11-30] MEDS ORDERED: EPINEPHrine PFS 0.1 MG/ML SYR IVP ONE ×2 (22:25)
[2018-11-30] MEDS ORDERED: ETOMIDATE 20 MG/10 ML VIAL IVP ONE (22:25)
[2018-11-30] MEDS ORDERED: SUCCINYLCHOLINE CHLORIDE 200 MG/10 ML VIAL IVP ONE (22:25)
[2018-11-30] MEDS ORDERED: DEXTROSE 50% 50 ML SYR IVP ONE (22:25)
[2018-11-30] MEDS ORDERED: CALCIUM GLUCONATE 10% 1000 MG/10 ML VIAL ONE (22:27)
[2018-11-30] MEDS ORDERED: GLUCAGON 1 MG VIAL ONE (22:29)
[2018-11-30] MEDS ORDERED: LEVOFLOXACIN 750 MG/D5W PREMIX 150 ML IV ONE (22:30)
[2018-11-30] MEDS ORDERED: MORPHINE SULFATE 2 MG/ML SYR IVP PRN (22:45)
[2018-11-30] MEDS ORDERED: LORazepam 2 MG/ML VIAL IM/IVP PRN (22:45)
[2018-11-30] MEDS ORDERED: DOCUSATE SODIUM 100 MG GELCAP PO PRN (22:45)
[2018-11-30] MEDS ORDERED: ONDANSETRON 4 MG/2 ML VIAL IM/IVP PRN (22:45)
[2018-11-30] MEDS ORDERED: ACETAMINOPHEN 325 MG TAB PO PRN (22:45)
[2018-11-30] MEDS ORDERED: HYDROcodone/APAP 5/325 MG 1 TAB TAB PO PRN (22:45)
--- NOTE | 2018-11-30 22:45 | NUR ---
PT HAS EYES OPEN, BITING TUBE, INCREASED PEAK PRESSURE ON VENT RR 40-50 ERMD MADE AWARE X1 ATIVAN GIVEN
[2018-11-30] MEDS ORDERED: LORazepam 2 MG/ML VIAL IVP ONE (22:50)
[2018-11-30] MEDS ORDERED: FAMOTIDINE 20 MG/2 ML VIAL IVP SCH (22:50)
[2018-11-30] MEDS ORDERED: DEXT 5% /NACL 0.9% 1,000 ML IV SCH (23:00)
[2018-11-30] MEDS ORDERED: PROPOFOL 1000 MG/100 ML PREMIX 100 ML IV ONE ×2 (23:05→23:13)
--- NOTE | 2018-11-30 23:05 | NUR ---
2310: PT AGITATED; PROPOFOL STARTED 30 MCG/KG/MIN @ 65 KG DRY WEIGHT TITRATE FOR RASS -3 VS: 166/97 HR 81 RR 40S SPO2 91% ON 100%FIO2 VENT. 2315: PT RASS-3 VS: 156/77 HR 77 RR 40S SPO2 95% ON 100%FIO2 VENT.
[2018-11-30 23:11] VITALS: BP 160/82
--- NOTE | 2018-11-30 23:11 | NUR ---
PT AR[place]IVED [place] [facility], INTUBATED, [place] [facility] BED NUMBER 3, HOOKED TO JEWEL FLAT SURFACER, CARDIAC SCOPE SHOWSSINUS BRADYCARDIA 43, PULSE CHECK APPRECIATED, UNRECORDABLE BLOOD PRESSURE, PULSE CHECKED NO PULSE APPRECIATED, CPR STARTED, CALLED FOR TRACE HERNANDEZ. TRACE HERNANDEZ TEAM ARRIVED. DR MALAVE AT BEDSIDE, ALL EMERGENCY MEDICATIONS GIVEN, CPR CONTINUED, PT AND PRONOUNCED BY DR MALAVE AT 2341. Addendum: 12/01/18 at 0116 by Oneil Pichardo RN CALLED TRACE HERNANDEZ AT [phone]
--- NOTE | 2018-11-30 23:15 | NUR ---
PT TRANSPORTED TO ICU BED 3 VIA VESNA WITH RN, EMT AND MONITOR. Addendum: 12/01/18 at 0259 by KRISTIN REPORT GIVEN TO DAVIDE BRICENO.
[2018-11-30 23:16] LABS: MAGNESIUM 2.3 mg/dL (1.8-2.4); PHOSPHORUS 5.1 mg/dL (2.5-4.9); THYROID STIMULATING HORMONE 19.11 uIU/mL (0.34-3.74)
--- NOTE | 2018-11-30 23:47 | NUR ---
CALLED AND SPOKE TO FRANKLIN TANG, PT BROTHER REGARDING PT ON CRITICAL CONDITION.
--- NOTE | 2018-12-01 00:05 | NUR ---
CALLED SUPPORT TEAM MEMBER OFFICE [phone], GAVE PT DETAILS, INFORMED THAT SUPPORT TEAM MEMBER WILL RETURN CALL SOON ABLE.
--- NOTE | 2018-12-01 00:12 | NUR ---
CALLED [facility], SPOKE TO GISSEL ABOUT PT DETAILS.
--- NOTE | 2018-12-01 00:17 | NUR ---
[facility] NOTIFIED OF PT EXPIRATION, SPOKE TO SOFYA CHENG.
--- NOTE | 2018-12-01 00:22 | NUR ---
CARLOZ BOYD CALLED TO GIVE NUMBERS OF FAMILY MEMBERS LAURA --> [phone] FRANKLIN (BROTHER)--> [phone], [phone]
--- NOTE | 2018-12-01 00:23 | NUR ---
PT FAMILY FRANKLIN TANG, BROTHER ARRIVED AT BEDSIDE.
--- NOTE | 2018-12-01 00:25 | NUR ---
PER PATIENT'S BROTHER, FRANKLIN TANG HE' LL DECIDE LATER IF THEY'LL SUBMIT THE PATIENT'S BODY FOR AUTOPSY AND REVEALED TOO THAT THEY DON'T HAVE ANY MORTUARY OF CHOICE AND IT'S OKAY FOR HIM TO SEND THE BODY TO HOSPITAL'S CONTACT MORTUARY [facility] MORT[facility].
--- NOTE | 2018-12-01 00:32 | NUR ---
[facility], GISSEL CALLED BACK ASKING FOR MORE PT DETAILS
--- NOTE | 2018-12-01 01:05 | NUR ---
PT BROTHER FRANKLIN TANG LEFT THE UNIT WITH PT PERSONAL BELONGINGS.
--- NOTE | 2018-12-01 01:49 | NUR ---
CALLED CONTACT MANAGER OFFICE [phone], SPOKE TO RERE, WAS INFORMED THAT CONTACT MANAGER WILL RETURN CALL SOON ABLE.
--- NOTE | 2018-12-01 03:07 | NUR ---
CALLED HOSPICE NURSE OFFICE [phone], SPOKE TO RERE, WAS INFORMED THAT HOSPICE NURSE WILL RETURN CALL SOON ABLE.
--- NOTE | 2018-12-01 04:57 | NUR ---
CALLED CODING CONSULTANT OFFICE [phone], SPOKE TO ANNIE, WAS INFORMED THAT CODING CONSULTANT WILL RETURN CALL SOON ABLE.
--- NOTE | 2018-12-01 05:20 | NUR ---
RECEIVED CALL FROM CONTROLLER OPERATIONS AND HR MANAGER, RENALDO FISH. INFORMED CONTROLLER OPERATIONS AND HR MANAGER ABOUT PT DETAILS. BODY RELEASE BY CONTROLLER OPERATIONS AND HR MANAGER, .
--- NOTE | 2018-12-01 05:30 | NUR ---
CALLED [facility], SPOKE TO GISSEL. [facility]
--- NOTE | 2018-12-01 05:50 | NUR ---
PERFORMED POST MORTEM CARE ON PT. TAGS PLACED.
--- NOTE | 2018-12-01 06:00 | NUR ---
JOANNA JOSUE CONTACTED BY TELEPHONE AND SAID THEY'LL BAG MENDER THE BODY ON OR BEFORE 0900h TODAY.
[2018-12-01] MEDS ORDERED: CLINDAMYCIN 600 MG in DEXTROSE 5% 50 ML IV SCH (07:00)
[2018-12-01] MEDS ORDERED: cefTRIAXone 2,000 MG in DEXTROSE 5% 100 ML IV SCH (09:00)
--- NOTE | 2018-12-01 09:05 | NUR ---
PATIENT'S BROTHER FRANKLIN WAS CALLED AT 0859, STATES THAT HE COULD NOT GET IN CONTACT WITH PATIENT'S FAMILY MEMBERS AND HE DOES NOT WANT AN AUTOPSY AT THIS TIME BUT WILL CALL MORTUARY IF ANYTHING CHANGES. PATIENT'S BODY WAS PICKED UP [phone] BY JOANNA [facility] MORTUARY REP.
--- NOTE | 2018-12-01 14:01 | NUR ---
Jane from [facility] informed ALICIA that patient's family requested to speak to ALICIA. ALICIA met with Amauri Lopez and Sonny Lopez. Amauri authorized SW to speak to Sonny regarding patient. Amauri and Sonny requested to speak to a physician regarding the cause of of patient. Amauri [phone] and Sonny [phone] Samayoa. Per Dr. Crawford and Dr. Mandujano, assigned resident physician, Dr. Samayoa is currently not available, and they requested ALICIA to obtain contact information from Mary Carmen and Dr. Samayoa would give them a call. Per Mary Carmen, they would like to speak to a physician in person rather than on the phone. ALICIA told Mary Carmen that they can expect a call to make arrangements in person if needed from Dr. Samayoa. Per Amauri's request, ALICIA provided admission time and admitting diagnosis. ALICIA/VALENTIN will follow up as needed.
== END 2018-12-01 09:03 | disposition expired | DRG 296 ==
LOC: MED 20:21 → MIC 22:49
PROVIDERS: ADMIT General Practice; ATTEND General Practice
PROC: 0BH17EZ Insertion of Endotracheal Airway into Trachea, Via Natural or Artificial Opening (ICD-10-PCS; principal; 2018-11-30)
PROC: 5A1935Z Respiratory Ventilation, Less than 24 Consecutive Hours (ICD-10-PCS; 2018-11-30)
PROC: 5A12012 Performance of Cardiac Output, Single, Manual (ICD-10-PCS; 2018-11-30)
DX: I46.9 Cardiac arrest, cause unspecified (principal); J18.9 Pneumonia, unspecified organism; N17.9 Acute kidney failure, unspecified; I69.354 Hemiplegia and hemiparesis following cerebral infarction affecting left non-dominant side; I49.01 Ventricular fibrillation; E87.5 Hyperkalemia; I11.0 Hypertensive heart disease with heart failure; I50.9 Heart failure, unspecified; W18.12XA Fall from or off toilet with subsequent striking against object, initial encounter; J45.909 Unspecified asthma, uncomplicated; F17.200 Nicotine dependence, unspecified, uncomplicated; Z88.6 Allergy status to analgesic agent; Z88.0 Allergy status to penicillin; Z91.09 Other allergy status, other than to drugs and biological substances; Z79.899 Other long term (current) drug therapy; Y93.89 Activity, other specified; Y92.121 Bathroom in nursing home as the place of occurrence of the external cause; Y99.8 Other external cause status; Z82.49 Family history of ischemic heart disease and other diseases of the circulatory system; Z82.3 Family history of stroke
CPT/HCPCS: 36415; 70450; 71045; 80053; 83690; 83735; 83880; 84100; 84443; 84484; 85025; 85610; 85730; 93005; 96374; 99291; J0330; J0610; J1610; J2060; J2704; J3490; J7030; J7060; Q0092